=== PATIENT | female | born 1935 | race Caucasian/White ===

== ENCOUNTER 2019-08-18 11:30 | Inpatient (IN) | payer MEDICARE, SELFPAY ==
[2019-08-23 03:20] VITALS: BP 156/70; PULSE 74; RESP 18; TEMP 36.6; O2SAT 96
[2019-08-23 05:00] VITALS: PULSE 81; RESP 18; O2SAT 98
[2019-08-23 07:00] VITALS: BP 164/56; PULSE 82; RESP 18; TEMP 36.4; O2SAT 92
[2019-08-23 07:16] LABS: Anion Gap 13.9 (5-19); Blood Urea Nitrogen 25 mg/dL (8-23); Calcium 8.5 mg/Dl (8.8-10.2); Carbon Dioxide 20 mmol/L (22-29); Chloride 106 mmol/L (98-107); Glucose 256 mg/dL (74-106); Potassium 3.9 mmol/L (3.5-5.1); Sodium 136 mmol/L (136-145)
[2019-08-23 08:00] VITALS: BP 164/56; PULSE 82; RESP 18; TEMP 36.4; O2SAT 92
[2019-08-23] MEDS: amoxicillin-clav 875-125 mg Tablet 1 TAB PO (08:16)
[2019-08-23] MEDS: apixaban 5 mg Tablet PO (08:16)
[2019-08-23] MEDS: metoprolol tartrate 25 mg Tablet 12.5 MG PO (08:18)
[2019-08-23] MEDS: vancomycin 750 MG in sodium chloride 0.9% 250 ML 250 MG IV (08:26)
--- NOTE | 2019-08-23 10:32 | P.DS_ITS ---
Discharge Providers Date of Admission: 08/18/19 11:30 Date of Discharge: 08/23/19 Attending Provider at Admission: Vince Encinas Attending Provider at Discharge: Vince Encinas Primary Care Provider: Rosmery Mijares Diagnoses at Discharge Discharge Diagnosis (1) Meningoencephalitis: Status: Acute (2) Sepsis: Status: Resolved (3) Fall: Status: Acute (4) Pneumonia: Status: Acute (5) Cerebellar artery occlusion or stenosis: Status: Acute (6) A-fib: Status: Acute (7) Thyroid goiter: Status: Acute (8) Cholelithiasis: Status: Acute (9) Tricuspid valve disorder: Status: Acute (10) DM type 2 (diabetes mellitus, type 2): Status: Acute (11) Hip pain: Status: Acute (12) HTN (hypertension): Status: Acute (13) (HFpEF) heart failure with preserved ejection fraction: Status: Acute Reason for Visit Reason for Visit: Reason For Visit: Ams/Fall Hospital Course Hospital Course: 83-year-old lady with history of hypertension, diabetes, possible blindness was admitted after presenting to the hospital after a fall with right hip pain, while in the hospital started on treatment for community- acquired pneumonia with suspected sepsis, noted to have confusion, with encephalopathy with 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 HSV serologies were sent out. No finding suggestive of HSV encephalitis noted on MRI brain. On MRA of blood vessels noted to have severe stenosis of right posterior cerebral artery, severe focal stenosis at origin of left posterior cerebral artery. Her mental status was noted to improved. While in the hospital also noted to have new onset atrial fibrillation with RVR. Due to this was started on anticoagulation with Eliquis. Also newly diagnosed with diabetes, A1c 12.72 which was started on Lantus. Due to hypertension was started on amlodipine. She has not seen a physician in a while, and was unaware of underlying problems. 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 No stridor noted on exam. Also incidentally found right adrenal adenoma, as well as cholelithiasis, which was confirmed on gallbladder ultrasound, with GB wall thickening, however, otherwise no signs of cholecystitis. She has remained asymptomatic without right upper quadrant pain or discomfort. Discussed all the incidental findings with her and her family. 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 fib, with risk of fall for now we will hold off on aspirin. Due to this also follow-up with neurology in outpatient clinic. She will be referred for follow-up with ENT regarding substernal thyroid goiter. Low-fat diet was recommended with regards to cholelithiasis, please consider referral to surgery as needed. She is referred for adrenal CT for follow-up on the adenoma. Incidentally noted tricuspid valve thickening with possible calcification on echocardiogram. She has had no signs of embolic disease during this hospitalization. There is been no sign of bacteremia, and bacterial cultures were been negative. She is referred for outpatient follow-up with cardiology. There has been no growth on CSF cultures. IV antibiotics have been discontinued. She has been switched over to Augmentin and will complete a 5-day course. Her HSV serology came back negative, mental status has been consistently good, and so acyclovir is discontinued. She experienced a fall during hospitalization, which was not witnessed, however, she reports was due to loss of balance. Due to balance issues, risk of falls home health is ordered for her, as well as walker. She is instructed to use her walker at all times. Physical Exam Const: COMMON NORMALS: no apparent distress HENMT: COMMON NORMALS: oropharynx normal Neck/C-Spine: COMMON NORMALS: no JVD Resp: COMMON NORMALS: normal respiratory effort and clear to auscultation bilaterally AUSCULTATION: clear to auscultation bilaterally Cardio: COMMON NORMALS: no JVD, regular rhythm, S1 normal heart sound, S2 normal heart sound and no murmurs RHYTHM: regular rhythm HEART SOUNDS: S1 normal and S2 normal GI: COMMON NORMALS: normal to inspection, nondistended, normoactive bowel sounds, soft to palpation and non-tender PALPATION: Yes soft Extremity: COMMON NORMALS: no joint enlargement and no pedal edema Skin: COMMON NORMALS: no rashes or lesions noted GENERAL SKIN EXAM: no rashes or lesions noted Discharge Data Data Completed and Pending: Labs from last 24 hours 08/23/19 08/22/19 08/22/19 06:57 21:45 17:00 WBC RBC Hgb Hct MCV MCH MCHC RDW Plt Count MPV Neut % (Auto) Lymph % (Auto) [place] % (Auto) Eos % (Auto) Baso % (Auto) Neut # (Auto) Lymph # (Auto) [place] # (Auto) Eos # (Auto) Baso # (Auto) Nucleated RBC % (a uto) Nucleated RBCs # Sodium 136 Potassium 3.9 Chloride 106 Carbon Dioxide 20 L Anion Gap 13.9 BUN 25 H Creatinine 0.9 Glucose 256 H POC Glucose 300 H 249 H Random Glucose Calcium 8.5 L Total Bilirubin AST ALT Alkaline Phosphata se Total Protein Albumin Globulin Vancomycin Trough 08/22/19 08/22/19 08/22/19 16:29 11:12 05:54 WBC RBC Hgb Hct MCV MCH MCHC RDW Plt Count MPV Neut % (Auto) Lymph % (Auto) [place] % (Auto) Eos % (Auto) Baso % (Auto) Neut # (Auto) Lymph # (Auto) [place] # (Auto) Eos # (Auto) Baso # (Auto) Nucleated RBC % (a uto) Nucleated RBCs # Sodium 137 Potassium 3.3 L Chloride 105 Carbon Dioxide 22 Anion Gap 13.3 BUN 23 Creatinine 0.8 Glucose POC Glucose 217 H Random Glucose 182 H Calcium 8.4 L Total Bilirubin 0.5 AST 17 ALT 16 Alkaline Phosphata se 49 Total Protein 5.1 L Albumin 2.6 L Globulin 2.5 Vancomycin Trough 18.4 H 08/22/19 05:54 WBC 7.2 RBC 3.92 L Hgb 10.8 L Hct 35.2 L MCV 89.8 MCH 27.6 L MCHC 30.7 RDW 13.5 Plt Count 236 MPV 9.1 Neut % (Auto) 60.1 Lymph % (Auto) 23.5 [place] % (Auto) 11.0 Eos % (Auto) 4.1 Baso % (Auto) 1.0 Neut # (Auto) 4.3 Lymph # (Auto) 1.7 [place] # (Auto) 0.8 Eos # (Auto) 0.3 Baso # (Auto) 0.1 Nucleated RBC % (a uto) 0 Nucleated RBCs # 0.0 Sodium Potassium Chloride Carbon Dioxide Anion Gap BUN Creatinine Glucose POC Glucose Random Glucose Calcium Total Bilirubin AST ALT Alkaline Phosphata se Total Protein Albumin Globulin Vancomycin Trough Vitals: Last Vital Signs Temp 97.5 F L 08/23/19 08:00 Pulse 82 08/23/19 08:00 Resp 18 08/23/19 08:00 BP 164/56 08/23/19 08:00 Pulse Ox 92 08/23/19 08:00 Discharge Plan Discharge Patient Disposition: Home Health Service Condition: Stable Prescriptions: New amoxicillin-pot clavulanate 875-125 mg Tablet 1 tab PO BID Qty: 10 RF: 0 Eliquis 5 mg Tablet 5 mg PO BID Qty: 60 RF: 0 metoprolol tartrate 25 mg Tablet 12.5 mg PO BID Qty: 30 RF: 0 nystatin [Nyamyc] 100,000 unit/gram Powder 1 applic topical BID Qty: 25 RF: 0 amlodipine 10 mg Tablet 10 mg PO DAILY Qty: 30 RF: 0 atorvastatin 40 mg Tablet 40 mg PO BEDTIME Qty: 30 RF: 0 furosemide 20 mg Tablet 20 mg PO BREAKFAST Qty: 30 RF: 0 No Action No Known Home Medications RF: 0 Discharge Orders: Discharge Order (Routine); Ordered 08/23/19 Ordered By: Vince Encinas Other Ambulatory Orders: CT abdomen pelvis w con* [id number] (Routine) Timeframe: 2 Weeks Facility: [facility] - Location: [facility] Ordered By: Vince Encinas Referrals: ENT, ENT [Other] - 2 weeks (PLEASE CALL DR. JANNA NOLAN'S OFFICE TOMORROW TO SET UP AN APPOINTMENT TO BE SEEN REGARDING THYROID GOITER.) Neurology, Neurology [Other] - 1 month (PLEASE CALL [facility] TOMORROW TO SET UP A FOLLOW UP APPOINTMENT.) Any, cardiology [Other] - 1 month ( PLEASE CALL [facility] TOMORROW TO SET UP AN APPINTMENT REGARDING THICKENING OF YOUR TRICUSPID VALVE.) Rosmery Mijares FNP [Primary Care Provider] - 4-7 days (PLEASE CALL ROSMERY MIJARES'S OFFICE TOMORROW TO SET UP A FOLLOW UP APPOINTMENT.) Discharge Diet: Low-fat, diabetic, less than 2 g sodium per day Discharge Activity: Use walker/crutches as instructed Activity Restrictions/Additional Instructions: Primary care provider refer to surgery for follow-up as needed for cholelithiasis. Please use walker at all times while on your feet. Please maintain strict fall precautions at home. Remove any loose articles from the floor, including mats, cables, etc. Please monitor your blood pressure 3 times daily, record values to bring to your appointment. Discharge Attestations Time Spent in Discharge Care*: greater than 30 min Quality Metrics Clinical Quality Measures During this hospital stay, did patient experience: None Coding Level of Care Code Acute Gluing Machine Offbearer for g Fwd Diagnoses Meningoencephalitis G04.90 Sepsis A41.9 Fall W19.XXXA Pneumonia J18.9 Cerebellar artery occlusion or stenosis I66.3 A-fib I48.91 Thyroid goiter E04.9 Cholelithiasis K80.20 Tricuspid valve disorder I07.9 DM type 2 (diabetes mellitus, type 2) E11.9 Hip pain M25.559 HTN (hypertension) I10 (HFpEF) heart failure with preserved ejection fraction I50.30
--- NOTE | 2019-08-23 10:33 | PC.SOCIAL ---
Pg 2 of IMM Pg 2 of IMM was explained and signed by the patient, copy was provided, and form placed in chart. She verbalized understanding and had no questions.
[2019-08-23 11:18] VITALS: BP 145/65; PULSE 76; RESP 18; TEMP 36.4; O2SAT 99
[2019-08-23 12:27] VITALS: PULSE 81; RESP 18; TEMP 36.4; O2SAT 99
--- NOTE | 2019-08-23 16:16 | PC.NURSE ---
MEDICATIONS SENT HOME PATIENT'S MEDICATIONS WERE TRANSCRIBED TO [facility] IN [place]. COST WAS AROUND $1000. PATIENT UNABLE TO AFFORD. MEDICATIONS SENT TO FLOOR FROM PHARMACY [facility]. A ONE TIME DOSE OF METOPROLOL, ELIQUIS, AMOXICILLIN, ATORVASTATIN WAS GIVEN TO PATIENT FAMILY MEMBER UNTIL MEDICATIONS CAN BE TRANSFERRED TO [facility] IN THE MORNING. ELIQUIS DISCOUNT ALSO GIVEN WELL FINANCIAL ASSISTANCE APPLICATION. FAMILY MEMBER UNDERSTOOD. ALL QUESTIONS ANSWERED.
== END 2019-08-23 14:00 | disposition home health service (06) | DRG 871 ==
PROVIDERS: Admitting Provider Internal Medicine; Emergency Provider Emergency Medicine; PCP Nurse Practitioner; Referring Provider Nurse Practitioner; Visit Provider Internal Medicine
DX: A41.9 Sepsis, unspecified organism (principal); G04.90 Encephalitis and encephalomyelitis, unspecified; J18.9 Pneumonia, unspecified organism; I50.30 Unspecified diastolic (congestive) heart failure; K80.20 Calculus of gallbladder without cholecystitis without obstruction; E11.65 Type 2 diabetes mellitus with hyperglycemia; Z79.4 Long term (current) use of insulin; I48.91 Unspecified atrial fibrillation; I66.3 Occlusion and stenosis of cerebellar arteries; I11.0 Hypertensive heart disease with heart failure; Z91.81 History of falling; M25.551 Pain in right hip; E04.9 Nontoxic goiter, unspecified; I07.9 Rheumatic tricuspid valve disease, unspecified
CPT/HCPCS: 36415; 36416; 36600; 51702; 70450; 70544; 70547; 70551; 71045; 71250; 72170; 73502; 73700; 76705; 80048; 80053; 80061; 80202; 80500; 81001; 82009; 82042; 82550; 82803; 82945; 82962; 83036; 83605; 83615; 83735; 83880; 83986; 84145; 84157; 84439; 84443; 84481; 84484; 85025; 85610; 86140; 86403; 87040; 87070; 87075; 87086; 87205; 87449; 87493; 87530; 87804; 89050; 92523; 92526; 92610; 93005; 93306; 96361; 96365; 96372; 97110; 97116; 97161; 97166; 97530; 97535; 99285; C1751; G0378; J0133; J0290; J0360; J0456; J0696; J1630; J1815; J1940; J2001; J2060; J2543; J3370; J3475; J3480; J3490; J7050

== ENCOUNTER 2019-09-19 15:15 | Outpatient (CLI) | payer MEDICARE, SELFPAY ==
--- NOTE | 2019-09-19 15:46 | XR_ITS ---
WS: [id number] LUMBAR SPINE: 3 VIEWS TECHNIQUE: AP, lateral and L5-S1 spot. HISTORY: INJURY OF LOW BACK COMPARISON: None available. Bones are markedly osteopenic. Increase in lumbar lordosis. Moderate disc space narrowing throughout the lumbar spine. No fractures are appreciated. Partial sacralization of L5 on the LEFT. Marked narrowing of the SI joints. Severe narrowing of the LEFT hip joint. Large calcified mass in th e RIGHT pelvis measures 5.2 x 4.5 cm consistent with a fibroid. Scattered plaque within the aorta. XR/XR lumbar spine 2-3V* [id number] IMPRESSION: 1. Severe osteopenia and increased lordosis. 2. No acute fractures are identified. Subtle fractures would easily be obscure d with this amount of osteopenia. 3. Calcified fibroid.
== END 2019-09-19 15:16 | disposition home or self-care (01) ==
LOC: RAD 15:20
PROVIDERS: Visit Provider Family Medicine
DX: S39.92XA Unspecified injury of lower back, initial encounter (principal); X58.XXXA Exposure to other specified factors, initial encounter; M85.88 Other specified disorders of bone density and structure, other site; D36.7 Benign neoplasm of other specified sites
CPT/HCPCS: 72100

== ENCOUNTER 2020-05-03 17:00 | Inpatient (IN) | payer MEDICARE, SELFPAY ==
[2020-05-03 17:15] VITALS: BP 173/77; PULSE 93; RESP 18; TEMP 36.5; O2SAT 90; BMI 35.1
--- NOTE | 2020-05-03 17:58 | XRR_ITS ---
PROCEDURE INFORMATION: Exam: XR Chest, 1 View Exam date and time: 05/03/2020 6:10 PM Age: 84 years old Clinical indication: Dyspnea TECHNIQUE: Imaging protocol: XR of the chest Views: 1 view. COMPARISON: CR Chest 1 [place] [id number] 08/19/2019 4:54 AM FINDINGS: Lungs: Ground-glass opacity in the right lung base. Pleural space: Shallow inspiration with crowding. Elevation of the right diaphragm versus increased right subpulmonic effusion. Stable small left pleural effusion with left base atelectasis. Heart/Mediastinum: Unremarkable. No cardiomegaly. Bones/joints: Unremarkable. XR/XR chest 1V portable [id number] IMPRESSION: 1. Increased right base consolidation and probable sub pulmonic effusion. 2. Stable small left pleural effusion.
--- NOTE | 2020-05-03 17:58 | ECG_ITS ---
[facility] Date: 2020-05-03 Pat Name: Kim Mon Department: Room: Gender: Female Environmental Services Floor Tech: : 1935 Requested By: Teddy Flores Order Number: [id number] Teresa MD: Jeremy Vargas M.D. Measurements Intervals [place] Rate: 94 P: 174 [place]: 229 QRS: 11 QRSD: 82 T: 5 QT: 366 QTc: 458 Interpretive Statements SINUS RHYTHM WITH FIRST DEGREE AV BLOCK POSSIBLE ANTERIOR MYOCARDIAL INFARCTION , PROBABLY OLD [30 ms Q WAVE IN V3/V4, OR R < 0.2 mV IN V4] Compared to ECG 08/19/2019 22:41:56 First degree AV block now present Myocardial infarct finding now present Atrial fibrillation no longer present T-wave abnormality no longer present Electronically Signed On 05-04-2020 16:20:32 CDT by Jeremy Vargas M.D. [email or web address]
--- NOTE | 2020-05-03 18:00 | USR_ITS ---
PROCEDURE INFORMATION: Exam: US Duplex Lower Extremity Veins, Bilateral Exam date and time: 05/03/2020 6:32 PM Age: 84 years old Clinical indication: Edema, localized; Lower extremity, bilateral; Additional info: Leg swelling/pain TECHNIQUE: Imaging protocol: Real-time duplex ultrasound of the extremities with 2-D humprhey scale, color Doppler flow and spectral waveform analysis with image documentation. Complete exam focused on the bilateral lower extremity veins. COMPARISON: No relevant prior studies available. FINDINGS: Right deep veins: Unremarkable. The common femoral, femoral, proximal profunda femoral and popliteal veins are patent without thrombus. Normal Doppler waveforms. Normal compressibility and/or augmentation response. Right superficial veins: Saphenofemoral junction is patent without thrombus. Left deep veins: Unremarkable. The common femoral, femoral, proximal profunda femoral and popliteal veins are patent without thrombus. Normal Doppler waveforms. Normal compressibility and/or augmentation response. Left superficial veins: Saphenofemoral junction is patent without thrombus. Soft tissues: Bilateral lower extremity subcutaneous soft tissue edema. US/CV venous duplex [facility] [id number] IMPRESSION: 1. No evidence for deep vein thrombosis.
[2020-05-03 18:30] LABS: NT Pro B Type Natriuretic Pept 5491 pg/mL (0-450); Procalcitonin 0.14 ng/mL (0-0.5)
[2020-05-03 18:42] LABS: Alanine Aminotransferase 15 U/L (0-33); Albumin Level 3.9 g/dL (3.5-5.2); Alkaline Phosphatase 112 IU/L (35-105); Anion Gap 18.4 (5-19); Aspartate Amino Transferase 17 U/L (0-32); Blood Urea Nitrogen 37 mg/dL (8-23); C Reactive Protein 16.3 mg/L (0.0-4.9); Carbon Dioxide 21 mmol/L (22-29); Chloride 103 mmol/L (98-107); Creatine Phosphokinase 66 U/L (26-192); Ferritin 63 ng/mL (15-150); Globulin 3.4 g/dL (1.3-4.6); Glucose 167 mg/dL (65-115); Lactate Dehydrogenase 263 U/L (135-214); Magnesium 2.4 mg/dL (1.7-2.3); Osmolality Calculated 287 mOsm/kg (285-295); Potassium 4.4 mmol/L (3.5-5.1); Sodium 138 mmol/L (136-145); Total Bilirubin 0.5 mg/dL (0.15-1.2); Total Protein 7.3 g/dL (6.6-8.7)
[2020-05-03 19:01] LABS: INR 1.08 (0.8-1.2)
[2020-05-03 19:02] LABS: Partial Thromboplastin Time 32.3 SECONDS (23.9-36.7)
[2020-05-03 19:03] LABS: Fibrinogen 476 mg/dL (174-498)
[2020-05-03 19:05] LABS: D Dimer 2.73 ug/mIFEU (0-0.59)
--- NOTE | 2020-05-03 19:27 | ED_ITS ---
HPI - SOB/Dyspnea General: Chief Complaint: Shortness of Breath/Dyspnea Stated Complaint: sob Time Seen by Provider: 05/03/20 17:58 Source: patient Mode of arrival: ambulatory Limitations: no limitations History of Present Illness: HPI Narrative: Kim is a very nice 84-year-old female who comes in complaining of shortness of breath. She is been short of breath for approximately 3 weeks to a month. During that time she is had bilateral increased leg swelling that now extends all the way up to her thighs. She says she gets very short of breath when she exerts herself and also when she lays flat. She denies any chest pain. She is had associated nausea with this but denies any vomiting, fever, chills or cough. Patient has not been exposed to anyone with the COVID-19 virus as she is stayed home and isolated herself. She states as long as she is at rest she is okay but if she exerts herself at all she becomes very short of breath. Patient denies a history of COPD or congestive heart failure. It was not documented but the patient did arrive and is requiring at least 3 L of nasal cannula oxygen to keep her pulse ox above 90%. Associated symptoms: Reports orthopnea; Deny abdominal pain, chest congestion, chest pain, diaphoresis, dizziness, extremity pain, fever(s), hemoptysis, lightheadedness, nausea, palpitations, syncope or vomiting Review of Systems Const: Denies: fever(s), chills, body aches, fatigue, malaise or diaphoresis Eyes: Denies: change in vision, blurry vision, photophobia, eye discomfort, eye discharge, eye redness or yellow eyes ENMT: Denies: throat pain, odynophagia, hoarseness, swelling of lips/tongue, ear or mastoid pain, ear discharge, change in hearing or nasal discharge Card: Reports: edema, dyspnea on exertion and orthopnea; Denies: chest pain, palpitations, irregular heart rhythm, lightheadedness, syncope or pre-syncope Resp: Reports: dyspnea; Denies: productive cough, non-productive cough, wheezing, hemoptysis or chest congestion GI: Denies: abdominal pain, nausea, vomiting, hematemesis, coffee ground emesi s, heartburn, diarrhea, constipation, GI cramping, hematochezia or melena : Denies: flank pain, dysuria, urinary frequency, urinary urgency or hematuria Musc: Denies: neck pain, back pain, extremity pain, extremity swelling, joint pain, joint swelling, joint redness, joint warmth or joint stiffness Skin/Breast: Denies: rash, pruritus, erythema, skin pain or skin tenderness Neuro: Denies: headache(s), numbness in extremities, weakness in extremities, sensory changes, lack of coordination, difficulty walking, dizziness, vertigo, confusion, Slurred speech present or seizure-like activity Sanchez/Lymph: Denies: easy bruising, easy bleeding, petechiae, purpura or enlarged lymph nodes All/Imm: Denies: urticaria, throat swelling, tongue swelling, facial swelling or acute wheezing PFSH ED PFSH: Medical History (HFpEF) heart failure with preserved ejection fraction A-fib Cerebellar artery occlusion or stenosis Cholelithiasis DM type 2 (diabetes mellitus, type 2) Hip pain HTN (hypertension) Thyroid goiter Tricuspid valve disorder Social History Smoking and tobacco status: never smoked Second hand smoke exposure: Yes Alcohol intake: never Substance/Drug Use: never Physical Exam Const: COMMON NORMALS: no acute distress, patient oriented x3, no limitations and alert GENERAL APPEARANCE: cooperative HENMT: COMMON NORMALS: normocephalic, atraumatic, external ears normal, EAC's normal and Normal external nose present HEAD & SCALP: normal to inspection, normocephalic and atraumatic FACE & SINUS: normal facial exam and face symmetric NOSE: Normal external nose present and Normal nares present EXTERNAL EAR: Yes external ears normal EXTERNAL AUDITORY CANAL: EAC's normal MOUTH: Normal oral and palatal mucosa present, lip normal and tongue normal Eye: COMMON NORMALS: Equal, round and reactive pupils present and conjunctivae normal GENERAL EYE: appearance normal, both eyes and all related structures ALIGNMENT: Yes alignment normal PERIORBITAL: periorbital findings normal EYELID: eyelids normal CONJUNCTIVA: Yes conjunctivae normal SCLERA: sclerae normal PUPIL: Yes Equal, round and reactive pupils present Neck/C-Spine: COMMON NORMALS: full ROM, no lymphadenopathy, supple, no meningeal signs and no JVD GENERAL: Yes normal visual inspection and Yes trachea midline Chest: COMMONS NORMALS: normal inspection of the chest and normal palpation of entire chest wall Resp: COMMON NORMALS: normal respiratory effort, No retractions, No use of accessory muscles and clear to auscultation bilaterally EFFORT & INSPECTION: Yes able to speak in complete sentences and Yes symmetric chest movement AUSCULTATION: clear to auscultation bilaterally, no crackles, rales, no rhonchi and no wheezes Cardio: COMMON NORMALS: no JVD, regular rate, regular rhythm, S1 normal heart sound present and S2 normal heart sound present RATE: regular rate RHYTHM: regular rhythm HEART SOUNDS: S1 normal heart sound present, S2 normal heart sound present, no click, no gallops, no murmurs and no rubs GI: COMMON NORMALS: Soft to palpation and No hepatosplenomegaly present PALPATION: Yes Soft to palpation, No Tenderness to palpation present (GI), No Guarding due to palpation present (GI), No Rigid due to palpation, Yes No hepatosplenomegaly present, No Hernia present, No Palpable mass present and No Pulsatile mass present : COMMON NORMALS: Yes no CVA tenderness BLADDER/KIDNEY EXAM: Yes no CVA tenderness EXTERNAL FEMALE EXAM: No Hernia present Back/Pelvis: COMMON NORMALS: no CVA tenderness, thoracic and lumbar spine normal to inspection, no thoracic nor lumbar tenderness and thoraco-lumbar ROM normal Extremity: COMMON NORMALS: normal to inspection, full ROM, capillary refill normal, no joint enlargement and no calf tenderness NARRATIVE EXTREMITY EXAM: Bilateral lower extremity edema to the proximal thighs Neuro: COMMON NORMALS: patient oriented x3, CN's II-XII intact bilaterally, moves all extremities, no focal motor deficits and no sensory deficits noted SENSORIUM/ORIENTATION: Yes alert MENINGEAL SIGNS: Yes no meningeal signs SPEECH: speech normal Psych: COMMON NORMALS: mental status grossly normal, Normal thought process present, cooperative, normal affect, speech normal and activity/motor behavior normal SPEECH: Yes normal speech THOUGHT PROCESS: Normal thought process present Skin: COMMON NORMALS: no rashes or lesions noted, turgor normal, no jaundice, no petechiae and no mottling GENERAL SKIN EXAM: no rashes or lesions noted and turgor normal Course Vital Signs: Vital signs: Vital Signs Temperature 97.7 F 05/03/20 17:15 Pulse Rate 92 05/03/20 23:03 Respiratory Rate 19 H 05/03/20 23:03 Blood Pressure 159/104 05/03/20 23:03 Pulse Oximetry 92 05/03/20 23:03 MDM - SOB/Dyspnea MDM Narrative: Medical decision making narrative: Moriah is a nice 84-year-old female comes in with dyspnea on exertion, orthopnea and progressive leg swelling. Ultrasound of her legs are unremarkable for DVT. Patient appears to be in a heart failure exacerbation. The case was endorsed to Dr. Pascualui she agrees admit for diuresis on stepdown. She would like to go ahead and do a CTA as the patient's d-dimer is positive despite being on Eliquis. Will rule out PE but also look at these effusions better to see if there is any loculation or underlying pathology. Lab Data: Attestation: I reviewed the patient's lab results. Labs: Lab Results 05/03/20 05/03/20 05/03/20 Range/Units 17:54 17:54 17:54 WBC 6.6 (4.0-10.0) 10^3/ uL RBC 3.92 L (4.1-5.3) 10^6/u L Hgb 10.5 L (11.5-15.3) g/dL Hct 32.6 L (37.0-47.0) % MCV 83.2 (81-99) fL MCH 26.8 L (28.0-34.0) pg MCHC 32.2 (30.0-36.0) g/dL RDW 15.9 H (12.1-15.1) % Plt Count 386 (130-400) 10^3/c mm MPV 9.2 (7.4-10.4) fL Neut % (Auto) 58.2 % Lymph % (Auto) 23.5 % Hamblen % (Auto) 11.9 % Eos % (Auto) 4.8 % Baso % (Auto) 1.4 % Neut # (Auto) 3.86 (1.8-7.7) 10^3/u L Lymph # (Auto) 1.6 (0.8-4.8) 10^3/u L Hamblen # (Auto) 0.8 (0.2-0.9) 10^3/u L Eos # (Auto) 0.3 (0.0-0.8) 10^3/u L Baso # (Auto) 0.1 (0.0-0.1) 10^3/u L Nucleated RBC % (a uto) 0 % Nucleated RBCs # 0.0 /100WBC PT 14.30 (12.1-14.9) SECO NDS INR 1.08 (0.8-1.2) APTT 32.3 (23.9-36.7) SECO NDS Fibrinogen 476 (174-498) mg/dL D-Dimer 2.73 H (0-0.59) ug/mIFE U Specimen Type Sample Site ABG pH (7.35-7.45) ABG pCO2 (35-45) mmHg ABG pO2 (80.0-100.0) mmH g ABG HCO3 (22-26) mmol/L ABG Base Excess (-2.0-2.0) mmol/ L Michael Test Hematocrit (37-47) % O2 Delivery Device O2 Liters/Min % FiO2 % Assistant Director Of Plant Operations ID Sodium 138 (136-145) mmol/L Potassium 4.4 (3.5-5.1) mmol/L Chloride 103 (98-107) mmol/L Carbon Dioxide 21 L (22-29) mmol/L Anion Gap 18.4 (5-19) BUN 37 H (8-23) mg/dL Creatinine 0.8 (0.5-0.9) mg/dL GFR Calculation Not Reportable Glucose 167 H (65-115) mg/dL Calculated Osmolal ity 287 (285-295) mOsm/k g Lactic Acid (0.5-2.2) mmol/L Calcium 9.0 (8.5-10.5) mg/dL Magnesium 2.4 H (1.7-2.3) mg/dL Ferritin 63 (15-150) ng/mL Total Bilirubin 0.5 (0.15-1.2) mg/dL AST 17 (0-32) U/L ALT 15 (0-33) U/L Alkaline Phosphata se 112 H (35-105) IU/L Lactate Dehydrogen ase 263 H (135-214) U/L Creatine Kinase 66 (26-192) U/L C-Reactive Protein 16.3 H (0.0-4.9) mg/L NT-Pro-B Natriuret Pep 5491 H (0-450) pg/mL Total Protein 7.3 (6.6-8.7) g/dL Albumin 3.9 (3.5-5.2) g/dL Globulin 3.4 (1.3-4.6) g/dL Procalcitonin 0.14 (0-0.5) ng/mL SARS-CoV-2 Ag (Rap id) (Negative) 05/03/20 05/03/20 05/03/20 Range/Units 19:34 20:21 21:40 WBC (4.0-10.0) 10^3/ uL RBC (4.1-5.3) 10^6/u L Hgb (11.5-15.3) g/dL Hct (37.0-47.0) % MCV (81-99) fL MCH (28.0-34.0) pg MCHC (30.0-36.0) g/dL RDW (12.1-15.1) % Plt Count (130-400) 10^3/c mm MPV (7.4-10.4) fL Neut % (Auto) % Lymph % (Auto) % Hamblen % (Auto) % Eos % (Auto) % Baso % (Auto) % Neut # (Auto) (1.8-7.7) 10^3/u L Lymph # (Auto) (0.8-4.8) 10^3/u L Hamblen # (Auto) (0.2-0.9) 10^3/u L Eos # (Auto) (0.0-0.8) 10^3/u L Baso # (Auto) (0.0-0.1) 10^3/u L Nucleated RBC % (a uto) % Nucleated RBCs # /100WBC PT (12.1-14.9) SECO NDS INR (0.8-1.2) APTT (23.9-36.7) SECO NDS Fibrinogen (174-498) mg/dL D-Dimer (0-0.59) ug/mIFE U Specimen Type Arterial Sample Site Brachial, left ABG pH 7.41 (7.35-7.45) ABG pCO2 34.2 L (35-45) mmHg ABG pO2 66.0 L (80.0-100.0) mmH g ABG HCO3 21.5 L (22-26) mmol/L ABG Base Excess -2.7 L (-2.0-2.0) mmol/ L Michael Test Pos Hematocrit 31.7 L (37-47) % O2 Delivery Device Nc O2 Liters/Min 4.0 % FiO2 36.0 % Assistant Director Of Plant Operations ID [id number] Sodium (136-145) mmol/L Potassium (3.5-5.1) mmol/L Chloride (98-107) mmol/L Carbon Dioxide (22-29) mmol/L Anion Gap (5-19) BUN (8-23) mg/dL Creatinine (0.5-0.9) mg/dL GFR Calculation Glucose (65-115) mg/dL Calculated Osmolal ity (285-295) mOsm/k g Lactic Acid 0.9 (0.5-2.2) mmol/L Calcium (8.5-10.5) mg/dL Magnesium (1.7-2.3) mg/dL Ferritin (15-150) ng/mL Total Bilirubin (0.15-1.2) mg/dL AST (0-32) U/L ALT (0-33) U/L Alkaline Phosphata se (35-105) IU/L Lactate Dehydrogen ase (135-214) U/L Creatine Kinase (26-192) U/L C-Reactive Protein (0.0-4.9) mg/L NT-Pro-B Natriuret Pep (0-450) pg/mL Total Protein (6.6-8.7) g/dL Albumin (3.5-5.2) g/dL Globulin (1.3-4.6) g/dL Procalcitonin (0-0.5) ng/mL SARS-CoV-2 Ag (Rap id) Negative (Negative) Imaging Data^: CXR: Attestation: I personally reviewed and interpreted this imaging study as follows: My impression: Congestive heart failure with bilateral pleural effusions Doppler bilateral lower extremities: My impression: Tech interpretation -no evidence of DVT EKG Data^: EKG 1: Attestation: I personally reviewed and interpreted this EKG as follows: EKG Interpretation Date: 05/03/20 EKG interpretation time: 18:27 Interpretation: Normal sinus rhythm with first-degree AV block, ventricular rate 94 beats a minute, normal QRS and QTc intervals, normal axis, nonspecific ST and T wave changes. Discharge Plan Discharge Patient Disposition: Admitted As Inpatient Clinical Impression: Acute exacerbation of congestive heart failure Condition: Stable Prescriptions: No Action atorvastatin 40 mg Tablet 40 mg PO BEDTIME Qty: 30 RF: 0 amlodipine 10 mg Tablet 10 mg PO DAILY Qty: 30 RF: 0 furosemide 20 mg Tablet 20 mg PO BREAKFAST Qty: 30 RF: 0 Nyamyc 100,000 unit/gram Powder 1 applic topical BID Qty: 25 RF: 0 amoxicillin-pot clavulanate 875-125 mg Tablet 1 tab PO BID Qty: 10 RF: 0 metoprolol tartrate 25 mg Tablet 12.5 mg PO BID Qty: 30 RF: 0 Eliquis 5 mg Tablet 5 mg PO BID Qty: 60 RF: 0 Lantus Solostar U-100 Insulin 100 unit/mL (3 mL) insulin pen 5 unit SUBCUT DAILY Qty: 3 RF: 0 Referrals: Mini Little DO [Primary Care Provider] - Coding Level of Care Code ED Cdl Service Technician for Chg Fwd Exam Comprehensive
[2020-05-03] MEDS: nitroglycerin 1 gm/inch oint Pkt 1 INCH TOPICAL (19:57)
[2020-05-03] MEDS: FUROsemide 10 mg/mL SDV 4mL 40 MG IVP (19:57)
[2020-05-03 20:02] LABS: Lactic Sepsis W/Reflex 0.9 mmol/L (0.5-2.2)
[2020-05-03 20:22] VITALS: BP 166/87; PULSE 95; RESP 25; O2SAT 92
[2020-05-03 20:22] LABS: Basophils # 0.1 10^3/uL (0.0-0.1); Basophils % 1.4 %; Eosinophils # 0.3 10^3/uL (0.0-0.8); Eosinophils % 4.8 %; Hematocrit 32.6 % (37.0-47.0); Hemoglobin 10.5 g/dL (11.5-15.3); Lymphocytes # 1.6 10^3/uL (0.8-4.8); Lymphocytes % 23.5 %; Mean Corpuscular HGB Conc 32.2 g/dL (30.0-36.0); Mean Corpuscular Hemoglobin 26.8 pg (28.0-34.0); Mean Corpuscular Volume 83.2 fL (81-99); Mean Platelet Volume 9.2 fL (7.4-10.4); Monocytes # 0.8 10^3/uL (0.2-0.9); Monocytes % 11.9 %; Neutrophils # 3.86 10^3/uL (1.8-7.7); Neutrophils % 58.2 %; Nucleated Red Blood Cells % 0 %; Platelet Count 386 10^3/cmm (130-400); Red Blood Count 3.92 10^6/uL (4.1-5.3); Red Cell Distribution Width 15.9 % (12.1-15.1); White Blood Count 6.6 10^3/uL (4.0-10.0)
[2020-05-03 20:59] VITALS: BP 163/95; PULSE 93; RESP 22; O2SAT 94
[2020-05-03 21:00] LABS: SARS Covid-2 Antigen Negative (Negative)
[2020-05-03 21:07] VITALS: BP 163/95; PULSE 93; RESP 25; O2SAT 92
[2020-05-03 21:48] LABS: ABG PCO2 34.2 mmHg (35-45); ABG PH Result 7.41 (7.35-7.45); Arterial Blood Gas Hematocrit 31.7 % (37-47); Base Excess ABG -2.7 mmol/L (-2.0-2.0); Blood Gas Allen Test Pos; Blood Gas Sample Site Brachial, left; Blood Gas Sample Type Arterial; HCO3 ABG 21.5 mmol/L (22-26); Oxygen Device NC
[2020-05-03 22:10] VITALS: BP 153/84; PULSE 94; RESP 21; O2SAT 92
[2020-05-03 23:03] VITALS: BP 159/104; PULSE 92; RESP 19; O2SAT 92
--- NOTE | 2020-05-03 23:32 | PM.HP ---
Providers/Chief Complaint Admitting Physician: Danielle Malave MD Primary Care Provider: Mini Little DO Chief Complaint: sob History of Present Illness Kim Mon is a 84 year old female with PMHx noted below presents from home due to ongoing and worsening shortness of breath, generalized swelling for the past 4 to 6 weeks. She has also had orthopnea, abdominal wall distention, and increasing shortness of breath even with minimal exertion. She is not oxygen dependent at baseline and has had progressive difficulty ambulating due to heaviness in her legs. She has a known history of chronic diastolic CHF and is on low-dose Lasix chronically. Last echo in July showed an ejection fraction of 62% with grade 2 diastolic dysfunction. Work-up today shows a normal white count of 6.6, hemoglobin of 10.5, normal electrolytes and creatinine, BUN of 37, blood glucose of 167, rapid COVID screen is negative, d-dimer is 2.73 and she is pending CTA, venous duplex has been done and is negative for DVT. Chest x-ray shows a right basilar consolidation, BNP is 5491, ABG shows some hypoxia and she is currently on supplemental oxygen. Julian catheter has been placed and she has received a 60 mg dose of IV Lasix with noted diuresis of approximately 1 L. She will require admission for further aggressive IV diuresis secondary to acutely decompensated diastolic CHF and treatment of pneumonia. Review of Systems Const: Reports: change in weight (weight gain) and fatigue; Denies: fever(s) or chills Eyes: Denies: change in vision ENMT: Reports: dry mouth Card: Reports: swelling of feet/ankles, dyspnea on exertion, orthopnea and other (orthopnea); Denies: chest pain or lightheadedness Resp: Reports: dyspnea GI: Reports: bloating; Denies: abdominal pain, nausea, vomiting, hematemesis or hematochezia : Denies: difficulty voiding, dysuria or hematuria Musc: Denies: back pain Skin/Breast: Denies: rash Neuro: Reports: weakness in extremities and difficulty walking; Denies: numbness in extremities Medications/Allergies Home Medications Medication Instructions Recorded Confirmed Last Taken Type amlodipine 10 mg PO DAILY #30 tab 08/23/19 05/04/20 05/03/20 08:00 Rx atorvastatin 40 mg PO BEDTIME #30 tab 08/23/19 05/04/20 05/02/20 21:00 Rx furosemide 20 mg PO BREAKFAST #30 tab 08/23/19 05/04/20 05/03/20 08:00 Rx metoprolol tartrate 12.5 mg PO BID #30 tab 08/23/19 05/04/20 05/03/20 20:00 Rx rivaroxaban [Xarelto] 20 mg PO DAILY 05/04/20 05/04/20 05/03/20 08:00 History Allergies Allergy/AdvReac Type Severity Reaction Status Date / Time shrimp Allergy Severe Unknown Verified 08/22/19 16:29 shellfish derived Allergy Unknown Unknown Verified 08/22/19 16:29 PFSH Acute PFSH: Medical History (Updated 05/04/20 @ 05:53 by Danielle Malave MD) (HFpEF) heart failure with preserved ejection fraction A-fib Cerebellar artery occlusion or stenosis Cholelithiasis DM type 2 (diabetes mellitus, type 2) Hip pain HTN (hypertension) Thyroid goiter Tricuspid valve disorder Surgical History (Updated 05/04/20 @ 05:43 by Danielle Malave MD) No pertinent past surgical history Family History (Updated 05/04/20 @ 05:44 by Danielle Malave MD) Mother Cancer Father CAD (coronary artery disease) Sister Diabetes Social History (Updated 05/04/20 @ 05:44 by Danielle Malave MD) Smoking and tobacco status: never smoked Second hand smoke exposure: Yes Alcohol intake: never Substance/Drug Use: never Household members: significant other Vitals/I&O/Wt Last Vital Signs Temp 97.7 F 05/03/20 17:15 Pulse 92 05/03/20 23:03 Resp 19 H 05/03/20 23:03 BP 159/104 05/03/20 23:03 Pulse Ox 92 05/03/20 23:03 Weight last 48 hrs Weight 78.925 kg Physical Exam Const: COMMON NORMALS: no acute distress and patient oriented x3 GENERAL APPEARANCE: cooperative, comfortable and Edematous NUTRITIONAL APPEARANCE: obese morbidly obese ORIENTATION/CONSCIOUSNESS: Yes awake OTHER: -Appears younger than stated age HENMT: COMMON NORMALS: normocephalic, atraumatic, hearing grossly normal bilaterally and moist oral mucous membranes HEAD & SCALP: normocephalic and atraumatic Eye: COMMON NORMALS: Equal, round and reactive pupils present, EOMs intact bilaterally and conjunctivae normal CONJUNCTIVA: Yes conjunctivae normal PUPIL: Yes Equal, round and reactive pupils present Neck/C-Spine: COMMON NORMALS: full ROM GENERAL: Yes normal visual inspection and Yes trachea midline Resp: COMMON NORMALS: normal respiratory effort, No retractions and No use of accessory muscles EFFORT & INSPECTION: Yes symmetric chest movement and Yes tachypneic AUSCULTATION: crackles OTHER: -Conversational dyspnea Cardio: COMMON NORMALS: regular rate, regular rhythm, S1 normal heart sound present and S2 normal heart sound present RATE: regular rate RHYTHM: regular rhythm HEART SOUNDS: S1 normal heart sound present, S2 normal heart sound present and Murmur heart sound present GI: COMMON NORMALS: Soft to palpation and non-tender INSPECTION: Yes Abdominal wall edema Laterality: bilateral, Yes Anasarca and Yes central obesity PALPATION: Yes Soft to palpation Extremity: COMMON NORMALS: normal to inspection and full ROM GENERAL: Yes edema (Up to upper thigh level bilaterally) Neuro: COMMON NORMALS: patient oriented x3, moves all extremities, no focal motor deficits and no sensory deficits noted SENSORIUM/ORIENTATION: Yes alert Psych: COMMON NORMALS: mental status grossly normal, Normal thought process present, cooperative, normal affect and speech normal SPEECH: Yes normal speech THOUGHT PROCESS: Normal thought process present Skin: COMMON NORMALS: no rashes or lesions noted, no jaundice, no petechiae and no mottling GENERAL SKIN EXAM: no rashes or lesions noted Urinary Catheter Management^: Julian: Cath Placed During This Visit: yes Reason for Continuing Indwelling Catheter: Accurate Measurement of Urinary Output in Critically Ill Patients Urinary Catheter Date of Insertion: 05/03/20 Urinary Catheter Time of Insertion: 20:24 Data : 05/03/20 17:54 05/03/20 17:54 Micro: Microbiology 05/03/20 19:34 Blood Culture - Preliminary Blood SPECIMEN COLLECTED 05/03/20 19:38 Blood Culture - Preliminary Blood SPECIMEN COLLECTED A&P Assessment and plan (1) Acute exacerbation of congestive heart failure: -Noted acute exacerbation of chronic diastolic CHF as evidenced by anasarca, BNP elevation, evidence of fluid overload on imaging -Has received a 60 mg dose of IV Lasix, continue IV diuresis -Telemetry monitoring, close monitoring of vital signs -Repeat echo ordered, last echo on record was in 07/2019 showing an ejection fraction of 62%, grade 2 diastolic dysfunction -Monitor renal function and electrolytes with diuresis -Monitor respiratory status, supplemental oxygen as needed Status: Acute Qualifiers: Heart failure type: diastolic Qualified Code(s): I50.33 - Acute on chronic diastolic (congestive) heart failure (2) Elevated d-dimer: -Noted to have d-dimer elevation, CTA ordered; venous duplex negative for DVT -Already on anticoagulation with Xarelto Status: Acute (3) Pneumonia: -Noted increased right basilar consolidation -Start on treatment with ceftriaxone and azithromycin -Monitor respiratory status, supplemental oxygen as needed Status: Acute Qualifiers: Pneumonia type: due to unspecified organism Laterality: right Lung location: lower lobe of lung Qualified Code(s): J18.9 - Pneumonia, unspecified organism (4) A-fib: -Telemetry monitoring -Resume metoprolol, Xarelto Status: Chronic Qualifiers: Atrial fibrillation type: unspecified Qualified Code(s): I48.91 - Unspecified atrial fibrillation (5) DM type 2 (diabetes mellitus, type 2): -Last A1c in 07/2019 was 12.6; repeat A1c -No noted insulin or hypoglycemic medications on med rec -Accu-Cheks, ISS, hypoglycemia precautions Status: Chronic Qualifiers: Diabetes mellitus terminal computer operator insulin use: without shelter use Diabetes mellitus complication status: without complication Qualified Code(s): E11.9 - Type 2 diabetes mellitus without complications (6) HTN (hypertension): -Monitor vital signs -Resume oral antihypertensives Status: Chronic Qualifiers: Hypertension type: essential hypertension Qualified Code(s): I10 - Essential (primary) hypertension (7) Fall: -Reports heavy sensation in her feet when she attempts to ambulate. This is likely secondary to acute CHF exacerbation -Fall precautions -PT evaluation Status: Acute Qualifiers: Encounter type: initial encounter Qualified Code(s): W19.XXXA - Unspecified fall, initial encounter Additional A&P Information -Morbid obesity: BMI-36 kg/m2 -cardiac consistent carb diet as tolerated -DVT ppx not needed as on AC -Dispo: home -Code status: FULL code Attestations Medical Necessity Statement*: Kim Mon's hospital stay will require greater than 2 midnights for management of acutely decompensated diastolic CHF requiring aggressive IV diuresis, treatment of pneumonia. Time Spent in Patient Care: Greater than 35 minutes (>than 50% of time spent in counselling and/or direct pt care on unit). Coding Level of Care Code Acute Steward/Stewardess Chief Cargo Vessel for Chg Fwd Diagnoses Acute exacerbation of congestive heart failure I50.33 Heart failure type: diastolic Elevated d-dimer R79.89 Pneumonia J18.9 Pneumonia type: due to unspecified organism Laterality: right Lung location: lower lobe of lung A-fib I48.91 Atrial fibrillation type: unspecified DM type 2 (diabetes mellitus, type 2) E11.9 Diabetes mellitus shelter insulin use: without shelter use Diabetes mellitus complication status: without complication HTN (hypertension) I10 Hypertension type: essential hypertension Fall W19.XXXA Encounter type: initial encounter
[2020-05-04] VITALS (9 sets, daily range): BP systolic 121–172; BP diastolic 70–88; PULSE 91–103; RESP 16–30; TEMP 35.9–36.9; O2SAT 94–98; BMI 36.1
[2020-05-04 00:40] LABS: Glucose Point of Care 164 mg/dL (70-110)
[2020-05-04] MEDS: azithromycin 500 MG in sodium chloride 0.9% 250 ML 250 MG IV (01:10)
[2020-05-04] MEDS: FUROsemide 10 mg/mL SDV 4mL 40 MG IVP ×3 (01:10→23:45)
[2020-05-04] MEDS: cefTRIAXone 1,000 MG in sodium chloride 0.9% (plus) 50 ML 100 MG IV ×2 (01:11→23:45)
--- NOTE | 2020-05-04 02:29 | PC.NURSE ---
Patient recieved from ED via gurney. Patient on O2 per NC on 4 L. Patient very winded upon exertion and even labored with wheezing noted after getting settled in bed. Lung sounds are greatly diminished. Bronchial congestion noted with weak ineffective cough at this time. Patient pleasant and alert and oriented X 4. Patient able to give history and answer questions appropriately. No skin issues noted. ABT given per patent 20 G peripheral IV to R antecubital space. No voiced pain at this time. VS WNL with BP noted to be a little on the high side. Will continue to monitor and assist as needed following CPOC
--- NOTE | 2020-05-04 02:45 | PC.NURSE ---
Patient unable to have CT done at this time. She becomes very short of breath to lie flat. Informed Dr Malave and CT will hold the order until patient is more stable.
[2020-05-04 06:13] LABS: Basophils # 0.1 10^3/uL (0.0-0.1); Basophils % 1.5 %; Eosinophils # 0.3 10^3/uL (0.0-0.8); Eosinophils % 4.6 %; Hemoglobin 9.5 g/dL (11.5-15.3); Lymphocytes # 1.2 10^3/uL (0.8-4.8); Lymphocytes % 19.8 %; Mean Corpuscular HGB Conc 31.7 g/dL (30.0-36.0); Mean Corpuscular Hemoglobin 26.2 pg (28.0-34.0); Mean Corpuscular Volume 82.6 fL (81-99); Mean Platelet Volume 8.7 fL (7.4-10.4); Monocytes # 0.7 10^3/uL (0.2-0.9); Monocytes % 12.3 %; Neutrophils # 3.61 10^3/uL (1.8-7.7); Neutrophils % 61.6 %; Nucleated Red Blood Cells % 0 %; Platelet Count 315 10^3/cmm (130-400); Red Blood Count 3.63 10^6/uL (4.1-5.3); Red Cell Distribution Width 15.6 % (12.1-15.1); White Blood Count 5.9 10^3/uL (4.0-10.0)
[2020-05-04 06:36] LABS: Glucose Point of Care 147 mg/dL (70-110)
[2020-05-04 06:45] LABS: Anion Gap 14.3 (5-19); Blood Urea Nitrogen 35 mg/dL (8-23); Calcium 8.6 mg/dL (8.5-10.5); Carbon Dioxide 24 mmol/L (22-29); Chloride 104 mmol/L (98-107); Glucose 151 mg/dL (65-115); Osmolality Calculated 286 mOsm/kg (285-295); Potassium 4.3 mmol/L (3.5-5.1); Sodium 138 mmol/L (136-145)
[2020-05-04 07:14] LABS: Estmated Average Glucose 154
[2020-05-04] MEDS: metoprolol tartrate 25 mg Tablet 12.5 MG PO ×2 (09:16→17:08)
[2020-05-04] MEDS: amlodipine 10 mg Tablet PO (09:16)
[2020-05-04] MEDS: rivaroxaban 10 mg Tablet 20 MG PO (09:16)
--- NOTE | 2020-05-04 09:48 | PC.ADMIT ---
[address] [facility] Admission Note: The patient,Kim Mon,84 y/o, was given written information regarding hospital policies, unit procedures and contact persons. Patient's smoking status: never smoked. Vital Signs - 8 hr 05/04/20 04:00 05/04/20 07:42 Temperature 98.4 F 97.6 F Pulse Rate 103 H 103 H Respiratory Rate 29 H 27 H Blood Pressure 149/88 144/86 Pulse Oximetry 96 97
[2020-05-04 10:17] LABS: Add Urine Microscopic? YES; Bilirubin Urine Neg (Negative); Blood Urine 3+ (Negative); Glucose Urine UA Trace (Normal); Ketones Urine Negative (Negative); Leukocyte Esterase Urine Trace (Negative); Nitrate Urine Negative (Negative); Protein Urine 2+ (Negative); Specific Gravity, Urine 1.015 (1.005-1.030); Urine Appearance SL Hazy (CLEAR); Urine Color Yellow (Yellow); Urobilinogen Urine Norm (Negative); pH Urine 5 (5-7)
[2020-05-04 10:19] LABS: Bacteria Urine 1+ /hpf; Mucus Urine 1+ /hpf; Squamous Epithelial Cell Urine 0-4 /hpf (0-5); WBC Urine 40-55 /hpf (0-5)
[2020-05-04 10:20] LABS: Add Urine Culture? Yes
[2020-05-04 11:46] LABS: Glucose Point of Care 150 mg/dL (70-110)
[2020-05-04 17:38] LABS: Glucose Point of Care 159 mg/dL (70-110)
--- NOTE | 2020-05-04 19:28 | PC.NURSE ---
Patient does not have any complaints at this time. Patient was assisted from chair to bed. Will monitor.
[2020-05-04 20:41] LABS: Glucose Point of Care 148 mg/dL (70-110)
--- NOTE | 2020-05-04 20:49 | P.PN_ITS ---
Subjective Subjective: Interval history: Today she is feeling at her. She was still having orthopnea earlier this morning, but this appears to be improving. Denies chest pain. Vitals/I&O/Wt Last Vital Signs Temp 97.5 F L 05/04/20 19:26 Pulse 96 05/04/20 19:26 Resp 22 H 05/04/20 19:26 BP 130/76 05/04/20 19:26 Pulse Ox 95 05/04/20 19:26 05/04/20 05/04/20 05/04/20 06:59 14:59 22:59 Intake Total 150 / 150 600 / 600 Output Total 2049 Balance -1900 / -1900 600 / 600 Weight last 48 hrs Weight 80.739 kg Weight 81.102 kg Weight 78.925 kg Physical Exam Const: COMMON NORMALS: no acute distress and patient oriented x3 OTHER: Awake, alert, pleasant, conversant. Sitting up in bed. HENMT: COMMON NORMALS: oropharynx normal Neck/C-Spine: COMMON NORMALS: no JVD Resp: COMMON NORMALS: normal respiratory effort and clear to auscultation bilaterally AUSCULTATION: clear to auscultation bilaterally and rales (Few faint crackles at bases.) Cardio: COMMON NORMALS: no JVD, regular rhythm, S1 normal heart sound present, S2 normal heart sound present and No murmurs present (Cardio) RHYTHM: regular rhythm HEART SOUNDS: S1 normal heart sound present and S2 normal heart sound present GI: COMMON NORMALS: Normal to inspection, nondistended, normoactive bowel sounds present, Soft to palpation and non-tender PALPATION: Yes Soft to palpation Extremity: COMMON NORMALS: no joint enlargement GENERAL: Yes edema (2+, improving with some wrinkling noted) Neuro: COMMON NORMALS: patient oriented x3 and moves all extremities Skin: COMMON NORMALS: no rashes or lesions noted GENERAL SKIN EXAM: no rashes or lesions noted Urinary Catheter Management^: Julian: Cath Placed During This Visit: yes Reason for Continuing Indwelling Catheter: Acute Urinary Retention or Obstruction Urinary Catheter Date of Insertion: 05/03/20 Urinary Catheter Time of Insertion: 20:24 Data : 05/04/20 05:51 05/04/20 05:51 Micro: Microbiology 05/03/20 19:34 Blood Culture - Preliminary Blood NEGATIVE TO DATE 05/03/20 19:38 Blood Culture - Preliminary Blood NEGATIVE TO DATE A&P Assessment and plan (1) Acute exacerbation of congestive heart failure: Showing improvement. She is feeling better today. Still having orthopnea. This CTA was postponed. Follow-up echo -1300 mL balance continue Lasix. -Noted acute exacerbation of chronic diastolic CHF as evidenced by anasarca, BNP elevation, evidence of fluid overload on imaging -Telemetry monitoring, close monitoring of vital signs -Repeat echo ordered, last echo on record was in 07/2019 showing an ejection fraction of 62%, grade 2 diastolic dysfunction -Monitor renal function and electrolytes with diuresis -Monitor respiratory status, supplemental oxygen as needed Status: Acute Qualifiers: Heart failure type: diastolic Qualified Code(s): I50.33 - Acute on chronic diastolic (congestive) heart failure (2) Elevated d-dimer: -Noted to have d-dimer elevation, CTA ordered; venous duplex negative for DVT Discussed with patient and her daughter. CTA postponed for now due to orthopnea. -Already on anticoagulation with Xarelto Status: Acute (3) Pneumonia: No signs of sepsis at this time. Continue antibiotics. -Noted increased right basilar consolidation -Start on treatment with ceftriaxone and azithromycin -Monitor respiratory status, supplemental oxygen as needed Status: Acute Qualifiers: Pneumonia type: due to unspecified organism Laterality: right Lung location: lower lobe of lung Qualified Code(s): J18.9 - Pneumonia, unspecified organism (4) A-fib: -Telemetry monitoring -Resume metoprolol, Xarelto Status: Chronic Qualifiers: Atrial fibrillation type: unspecified Qualified Code(s): I48.91 - Unspecified atrial fibrillation (5) DM type 2 (diabetes mellitus, type 2): -Last A1c in 07/2019 was 12.6; repeat A1c -No noted insulin or hypoglycemic medications on med rec, but appears well controlled with A1c of 7. -Accu-Cheks, ISS, hypoglycemia precautions Status: Chronic Qualifiers: Diabetes mellitus remote computer terminal operator insulin use: without remote computer terminal operator use Diabetes mellitus complication status: without complication Qualified Code(s): E11.9 - Type 2 diabetes mellitus without complications (6) HTN (hypertension): -Monitor vital signs -Resume oral antihypertensives Status: Chronic Qualifiers: Hypertension type: essential hypertension Qualified Code(s): I10 - Essential (primary) hypertension (7) Fall: -Reports heavy sensation in her feet when she attempts to ambulate. This is likely secondary to acute CHF exacerbation -Fall precautions -PT Status: Acute Qualifiers: Encounter type: initial encounter Qualified Code(s): W19.XXXA - Unspecified fall, initial encounter Additional A&P Information -Morbid obesity: BMI-36 kg/m2 -cardiac consistent carb diet as tolerated -DVT ppx not needed as on AC -Dispo: home -Code status: FULL code Attestations Medical Necessity Statement*: Admission for assessment management of acute CHF exacerbation and pneumonia. Coding Level of Care Code Acute Economic Adviser for [facility] Fwd Diagnoses Acute exacerbation of congestive heart failure I50.33 Heart failure type: diastolic Elevated d-dimer R79.89 Pneumonia J18.9 Pneumonia type: due to unspecified organism Laterality: right Lung location: lower lobe of lung A-fib I48.91 Atrial fibrillation type: unspecified DM type 2 (diabetes mellitus, type 2) E11.9 Diabetes mellitus remote computer terminal operator insulin use: without residential use Diabetes mellitus complication status: without complication HTN (hypertension) I10 Hypertension type: essential hypertension Fall W19.XXXA Encounter type: initial encounter
--- NOTE | 2020-05-05 00:12 | USCV_ITS ---
Kim Mon Age: 84 Gender: F : 1935 Exam Date: 05/05/2020 09:10 Ordering Phys: Danielle Malave MD Technologist: Priscilla King Exam Location: [facility] [place] Indication: Reassess EF, significant CHF exacerbation BP: 149 / 88 HR: 102 Rhythm: Technical Quality: Fair MEASUREMENTS (Male / Female) Normal Values 2D ECHO LV Diastolic Diameter PLAX 4.8 cm 4.2 - 5.9 / 3.9 - 5.3 cm LV Systolic Diameter PLAX 3.5 cm LV Chamber Size 3.2 cm IVS Diastolic Thickness 1.3 cm 0.6 - 1.0 / 0.6 - 0.9 cm IVS Systolic Thickness 1.4 cm LVPW Diastolic Thickness 1.0 cm 0.6 - 1.0 / 0.6 - 0.9 cm LVPW Systolic Thickness 1.6 cm RV Chamber Size 2.6 cm LVOT Diameter 1.9 cm LV Ejection Fraction 2D Teich 54.2 % LA Diameter 3.8 cm LA Width 4.0 cm LA Height 7.0 cm RA Width 3.4 cm RA Height 5.0 cm Aorta at Sinotubular Diameter 2.4 cm M-MODE LV Diastolic Diameter MM 5.2 cm 4.2 - 5.9 / 3.9 - 5.3 cm LV Systolic Diameter MM 3.8 cm LV Ejection Fraction MM Teich 50.6 % IVS Diastolic Thickness MM 1.1 cm 0.6 - 1.0 / 0.6 - 0.9 cm IVS Systolic Thickness MM 1.1 cm LVPW Diastolic Thickness MM 1.1 cm 0.6 - 1.0 / 0.6 - 0.9 cm LVPW Systolic Thickness MM 1.4 cm Aortic Annulus Diameter 3.1 cm LA Ao Ratio MM 1.2 MV E Point Septal Separation 1.0 cm DOPPLER AV Peak Velocity 140.0 cm/s LVOT Peak Velocity 108.0 cm/s AV Area Cont Eq vti 2.1 cm squared AV Area Cont Eq pk 2.3 cm squared MV Area PHT 5.0 cm squared MV E' Velocity 15.0 cm/s Mitral E to MV E' Ratio 10.1 Mitral E to LV E' Lateral Ratio 10.3 Mitral E to LV E' Septal Ratio 10.0 TR Peak Velocity 318.0 cm/s TR Peak Gradient 40.4 mmHg TV Peak E Velocity 46.0 cm/s Right Atrial Pressure 8.0 mmHg Pulmonary Artery Systolic Pressu 48.4 mmHg PV Peak Velocity 60.0 cm/s RV Acceleration Time 0.1 s RV Ejection Time 0.3 s RV AcT/ET 0.3 FINDINGS Left Ventricle Normal left ventricular cavity size. Mildly increased left ventricular cavity size. Mildly decreased left ventricular systolic function. Global left ventricular hypokinesis. Left ventricular ejection fraction is estimated at 50 %. Due to foreshortening of left ventricle cavity estimation of ejection fraction may not be accurate. In the presence of atrial fibrillation diastolic function cannot be assessed accurately. There appeared to be possible pleural effusion noted. Right Ventricle The right ventricle is normal in size and function. Moderate pulmonary hypertension, RVSP 48.4 mmHg. Right Atrium Moderately increased right atrial size. Left Atrium Moderately increased left atrial size. Mitral Valve Moderately thickened mitral valve. No mitral valve stenosis. Severe mitral valve regurgitation. Aortic Valve Severe aortic valve calcification. No aortic valve stenosis. Mild aortic valve regurgitation. Tricuspid Valve Severe tricuspid valve regurgitation. Pulmonic Valve Trace pulmonary valve regurgitation. Pericardium Normal pericardium without effusion. Aorta Normal ascending aorta dimension. CONCLUSIONS 1-Normal left ventricular cavity size. Mildly increased left ventricular cavity size. Mildly decreased left ventricular systolic function. Global left ventricular hypokinesis. Left ventricular ejection fraction is estimated at 50 %. Due to foreshortening of left ventricle cavity estimation of ejection fraction may not be accurate. In the presence of atrial fibrillation diastolic function cannot be assessed accurately. There appeared to be possible pleural effusion noted. 2-The right ventricle is normal in size and function. Moderate pulmonary hypertension, RVSP 48.4 mmHg. 3-Severe aortic valve calcification. No aortic valve stenosis. Mild aortic valve regurgitation. 4-Moderately thickened mitral valve. No mitral valve stenosis. Severe mitral valve regurgitation. 5-Severe tricuspid valve regurgitation. 6-Moderate biatrial enlargment. 7-There is no pericardial effusion. 8-Right atrial pressure is around 10 mm of mercury. 9-When compared to the prior echocardiogram dated 08/19/19, there is worsenig of mitral and tricuspid valve regurgitation from mild to severe now, there is also noted to have pleural effusion, Ejection fraction may have mildy reduced to 50%. Jeremy Vargas MD (Electronically Signed) Final Date: 05 May 2020 12:39 S
[2020-05-05] MEDS: azithromycin 500 MG in sodium chloride 0.9% 250 ML 250 MG IV (00:15)
--- NOTE | 2020-05-05 03:01 | PC.NURSE ---
Patient is currently resting in bed with eyes closed. Will monitor.
[2020-05-05 03:52] VITALS: BP 135/79; PULSE 98; RESP 25; TEMP 36.7; O2SAT 97
[2020-05-05 06:20] LABS: Basophils # 0.1 10^3/uL (0.0-0.1); Basophils % 1.5 %; Eosinophils # 0.4 10^3/uL (0.0-0.8); Hematocrit 28.3 % (37.0-47.0); Hemoglobin 8.9 g/dL (11.5-15.3); Lymphocytes # 1.6 10^3/uL (0.8-4.8); Lymphocytes % 29.6 %; Mean Corpuscular HGB Conc 31.4 g/dL (30.0-36.0); Mean Corpuscular Volume 82.7 fL (81-99); Mean Platelet Volume 9.2 fL (7.4-10.4); Monocytes # 0.7 10^3/uL (0.2-0.9); Monocytes % 13.3 %; Neutrophils % 47.4 %; Nucleated Red Blood Cells % 0 %; Platelet Count 333 10^3/cmm (130-400); Red Blood Count 3.42 10^6/uL (4.1-5.3); Red Cell Distribution Width 15.5 % (12.1-15.1); White Blood Count 5.5 10^3/uL (4.0-10.0)
[2020-05-05 06:31] LABS: Glucose Point of Care 101 mg/dL (70-110)
[2020-05-05 07:02] LABS: Blood Urea Nitrogen 35 mg/dL (8-23); Calcium 8.5 mg/dL (8.5-10.5); Carbon Dioxide 24 mmol/L (22-29); Chloride 105 mmol/L (98-107); Glucose 105 mg/dL (65-115); Osmolality Calculated 286 mOsm/kg (285-295); Sodium 139 mmol/L (136-145)
[2020-05-05 08:00] VITALS: BP 153/84; PULSE 100; RESP 27; TEMP 36.4; O2SAT 97
[2020-05-05 08:04] VITALS: PULSE 100; O2SAT 96
[2020-05-05] MEDS: metoprolol tartrate 25 mg Tablet 12.5 MG PO ×2 (09:00→17:39)
--- NOTE | 2020-05-05 09:00 | CTR_ITS ---
PROCEDURE INFORMATION: Exam: CT Angiography Chest With Contrast Exam date and time: 05/05/2020 10:06 AM Age: 84 years old Clinical indication: Dyspnea TECHNIQUE: Imaging protocol: Computed tomographic angiography of the chest with intravenous contrast. 3D rendering (Not supervised by radiologist): MIP and/or 3D reconstructed images were created by the technologist. Radiation optimization: All CT scans at this facility use at least one of these dose optimization techniques: automated exposure control; mA and/or kV adjustment per patient size (includes targeted exams where dose is matched to clinical indication); or iterative reconstruction. Contrast material: OMNIPAQUE 350; Contrast volume: 95 ml; Contrast route: INTRAVENOUS (IV); COMPARISON: CT chest wo con [id number] 08/18/2019 12:50 PM RADIATION DOSE METRICS: Total DLP (mGy-cm): 497.53 FINDINGS: Pulmonary arteries: No sign of pulmonary embolism. Aorta: The thoracic aorta is atherosclerotic. No aneurysm or displaced intimal calcifications. 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 Lungs: There is compressive atelectasis in both lower lobes, worse on the right, as well as the right middle lobe. Pleural space: There is a large right pleural effusion, and a moderate size left pleural effusion. No pneumothorax. Heart: The cardiac silhouette is not enlarged. No pericardial effusion. There is coronary artery disease. Lymph nodes: No pathologically enlarged lymph nodes. Bones/joints: Multilevel disc degeneration in the thoracic spine. There is diffuse idiopathic skeletal hyperostosis. Soft tissues: There is bilateral diffuse subcutaneous body wall edema. CT/CT angio chest PE protcl [id number] IMPRESSION: 1. No sign of pulmonary embolism. 2. Bilateral, asymmetric pleural effusions and compressive atelectasis. Radiation Dose CTDIVOL = (mGy): DLP = 497.53 (mGy-cm)
[2020-05-05] MEDS: rivaroxaban 10 mg Tablet 20 MG PO (09:02)
[2020-05-05] MEDS: amlodipine 10 mg Tablet PO (09:02)
[2020-05-05] MEDS: FUROsemide 10 mg/mL SDV 10mL 60 MG IVP ×2 (09:16→20:38)
--- NOTE | 2020-05-05 09:50 | PM.PN ---
Subjective Subjective: Interval history: She is feeling a little better. But still needs to sit up to sleep. No chest pain. Vitals/I&O/Wt Last Vital Signs Temp 97.6 F 05/05/20 08:00 Pulse 100 05/05/20 08:04 Resp 27 H 05/05/20 08:00 BP 153/84 05/05/20 08:00 Pulse Ox 96 05/05/20 08:04 05/04/20 05/05/20 05/05/20 22:59 06:59 14:59 Intake Total 300 / 900 Output Total 1175 / 1175 Balance -875 / -275 Weight last 48 hrs Weight 79.605 kg Weight 80.739 kg Weight 81.102 kg Weight 78.925 kg Physical Exam Const: COMMON NORMALS: no acute distress and patient oriented x3 OTHER: Speaking in full sentences. Sitting up in bed. HENMT: COMMON NORMALS: oropharynx normal Neck/C-Spine: COMMON NORMALS: no JVD Resp: COMMON NORMALS: normal respiratory effort AUSCULTATION: rales (Few faint crackles at bases.) and diminished lung sounds bilateral in the lower lung colón Cardio: COMMON NORMALS: no JVD, regular rhythm, S1 normal heart sound present, S2 normal heart sound present and No murmurs present (Cardio) RHYTHM: regular rhythm HEART SOUNDS: S1 normal heart sound present and S2 normal heart sound present GI: COMMON NORMALS: Normal to inspection, nondistended, normoactive bowel sounds present, Soft to palpation and non-tender PALPATION: Yes Soft to palpation Extremity: COMMON NORMALS: no joint enlargement GENERAL: Yes edema (2+, improving with some wrinkling noted) Neuro: COMMON NORMALS: patient oriented x3 and moves all extremities Skin: COMMON NORMALS: no rashes or lesions noted GENERAL SKIN EXAM: no rashes or lesions noted Urinary Catheter Management^: Julian: Cath Placed During This Visit: yes Reason for Continuing Indwelling Catheter: Acute Urinary Retention or Obstruction Urinary Catheter Date of Insertion: 05/03/20 Urinary Catheter Time of Insertion: 20:24 Data : 05/05/20 05:49 05/05/20 05:49 Micro: Microbiology 05/04/20 09:10 Urine Culture - Preliminary Urine,Clean Catch 05/03/20 19:34 Blood Culture - Preliminary Blood NEGATIVE TO DATE 09/11/20 19:38 Blood Culture - Preliminary Blood NEGATIVE TO DATE A&P Assessment and plan (1) Acute exacerbation of congestive heart failure: Slow improvement. Still significant orthopnea. The CTA was postponed. LE edema gradually improving. Pleural effusion. Tomorrow consider reaching out to IR to see if there is enough fluid to drain, CTA should help with assessment. Follow-up echo results Increase Lasix to 60 mg twice daily as urine output can be better. -Noted acute exacerbation of chronic diastolic CHF as evidenced by anasarca, BNP elevation, evidence of fluid overload on imaging -Telemetry monitoring, close monitoring of vital signs -last echo on record was in 07/2019 showing an ejection fraction of 62%, grade 2 diastolic dysfunction -Monitor renal function and electrolytes with diuresis -Monitor respiratory status, supplemental oxygen as needed Status: Acute Qualifiers: Heart failure type: diastolic Qualified Code(s): I50.33 - Acute on chronic diastolic (congestive) heart failure (2) Elevated d-dimer: -Noted to have d-dimer elevation, CTA ordered; venous duplex negative for DVT Discussed with patient and her daughter. CTA wants little bit improvement in orthopnea. -Already on anticoagulation with Xarelto Status: Acute (3) Pneumonia: No signs of sepsis at this time. Continue antibiotics. -Noted increased right basilar consolidation -Start on treatment with ceftriaxone and azithromycin -Monitor respiratory status, supplemental oxygen as needed Status: Acute Qualifiers: Pneumonia type: due to unspecified organism Laterality: right Lung location: lower lobe of lung Qualified Code(s): J18.9 - Pneumonia, unspecified organism (4) A-fib: -Telemetry monitoring -metoprolol, Xarelto Status: Chronic Qualifiers: Atrial fibrillation type: unspecified Qualified Code(s): I48.91 - Unspecified atrial fibrillation (5) DM type 2 (diabetes mellitus, type 2): -Last A1c in 07/2019 was 12.6; repeat A1c -No noted insulin or hypoglycemic medications on med rec, but appears well controlled with A1c of 7. -Accu-Cheks, ISS, hypoglycemia precautions Status: Chronic Qualifiers: Diabetes mellitus community recreation programmer insulin use: without community recreation programmer use Diabetes mellitus complication status: without complication Qualified Code(s): E11.9 - Type 2 diabetes mellitus without complications (6) HTN (hypertension): -Monitor vital signs -Resume oral antihypertensives Status: Chronic Qualifiers: Hypertension type: essential hypertension Qualified Code(s): I10 - Essential (primary) hypertension (7) Fall: -Reports heavy sensation in her feet when she attempts to ambulate. This is likely secondary to acute CHF exacerbation -Fall precautions -PT Status: Acute Qualifiers: Encounter type: initial encounter Qualified Code(s): W19.XXXA - Unspecified fall, initial encounter Additional A&P Information Acute on chronic anemia: Hemoglobin down to 8.9. Request Hemoccult. MCV low normal. Ferritin normal. Iron studies. -Morbid obesity: BMI-36 kg/m2 -cardiac consistent carb diet as tolerated -DVT ppx not needed as on AC -Dispo: home -Code status: FULL code Attestations Medical Necessity Statement*: Continue admission for assessment and management of CHF exacerbation, pneumonia, pleural effusion. Coding Level of Care Code Acute Agent T[employer] for [facility] Fwd Diagnoses Acute exacerbation of congestive heart failure I50.33 Heart failure type: diastolic Elevated d-dimer R79.89 Pneumonia J18.9 Pneumonia type: due to unspecified organism Laterality: right Lung location: lower lobe of lung A-fib I48.91 Atrial fibrillation type: unspecified DM type 2 (diabetes mellitus, type 2) E11.9 Diabetes mellitus community recreation programmer insulin use: without community recreation programmer use Diabetes mellitus complication status: without complication HTN (hypertension) I10 Hypertension type: essential hypertension Fall W19.XXXA Encounter type: initial encounter
[2020-05-05] MEDS: iohexol 350 mg/mL 100 mL Btl IV (10:25)
[2020-05-05 11:34] LABS: Glucose Point of Care 126 mg/dL (70-110)
[2020-05-05 12:00] VITALS: BP 123/61; PULSE 70; RESP 19; TEMP 36.6; O2SAT 97
[2020-05-05 16:38] LABS: Glucose Point of Care 154 mg/dL (70-110)
[2020-05-05 18:55] VITALS: BP 128/67; PULSE 92; RESP 23; TEMP 37; O2SAT 96
--- NOTE | 2020-05-05 19:48 | PC.NURSE ---
Dr. Jessica notified that left foot wound between 4th and 5th digit did not have any drainage and just appeared to be a scab. Wound was cleaned with saline and sample was collected from wound bed.
[2020-05-05 20:16] LABS: Glucose Point of Care 246 mg/dL (70-110)
[2020-05-05] MEDS: atorvastatin 40 mg Tablet PO (20:38)
[2020-05-06] VITALS (8 sets, daily range): BP systolic 119–141; BP diastolic 59–79; PULSE 90–99; RESP 15–28; TEMP 36.3–36.8; O2SAT 96–98
[2020-05-06] MEDS: cefTRIAXone 1,000 MG in sodium chloride 0.9% (plus) 50 ML 100 MG IV ×2 (00:05→23:47)
--- NOTE | 2020-05-06 00:05 | PC.NURSE ---
Pt resting comfortably in chair. Asked pt if she would like to go to bed and she said I am more comfortable in my chair .
[2020-05-06] MEDS: azithromycin 500 MG in sodium chloride 0.9% 250 ML 250 MG IV (00:39)
--- NOTE | 2020-05-06 00:46 | PC.NURSE ---
Patient has been sleeping in reclining chair tonight. Patient states that she does not want to go back to bed and wants to continue sleeping in recliner. Patient has call light within reach. Will monitor.
[2020-05-06 05:05] LABS: Basophils # 0.1 10^3/uL (0.0-0.1); Basophils % 1.2 %; Eosinophils # 0.4 10^3/uL (0.0-0.8); Eosinophils % 6.2 %; Hematocrit 29.2 % (37.0-47.0); Lymphocytes # 1.5 10^3/uL (0.8-4.8); Lymphocytes % 21.5 %; Mean Corpuscular HGB Conc 30.8 g/dL (30.0-36.0); Mean Corpuscular Hemoglobin 25.6 pg (28.0-34.0); Mean Corpuscular Volume 83.2 fL (81-99); Mean Platelet Volume 8.8 fL (7.4-10.4); Monocytes # 0.8 10^3/uL (0.2-0.9); Monocytes % 11.2 %; Neutrophils # 4.05 10^3/uL (1.8-7.7); Neutrophils % 59.6 %; Nucleated Red Blood Cells % 0 %; Platelet Count 359 10^3/cmm (130-400); Red Blood Count 3.51 10^6/uL (4.1-5.3); Red Cell Distribution Width 15.4 % (12.1-15.1); White Blood Count 6.8 10^3/uL (4.0-10.0)
[2020-05-06 05:36] LABS: Alanine Aminotransferase 12 U/L (0-33); Albumin Level 3.1 g/dL (3.5-5.2); Alkaline Phosphatase 88 IU/L (35-105); Anion Gap 16.1 (5-19); Aspartate Amino Transferase 16 U/L (0-32); Blood Urea Nitrogen 39 mg/dL (8-23); Calcium 8.6 mg/dL (8.5-10.5); Carbon Dioxide 23 mmol/L (22-29); Chloride 100 mmol/L (98-107); Globulin 2.8 g/dL (1.3-4.6); Glucose 106 mg/dL (65-115); Osmolality Calculated 278 mOsm/kg (285-295); Potassium 4.1 mmol/L (3.5-5.1); Sodium 135 mmol/L (136-145); Total Bilirubin 0.2 mg/dL (0.15-1.2); Total Protein 5.9 g/dL (6.6-8.7)
[2020-05-06 05:58] LABS: Iron 27 ug/dL (37-145); Percent Saturation 10.4 % (20-50); Total Iron Binding Capacity 258 mcg/dl; Unsaturated Iron Binding 231 ug/dL (112-347)
[2020-05-06 06:36] LABS: Glucose Point of Care 106 mg/dL (70-110)
[2020-05-06] MEDS: FUROsemide 10 mg/mL SDV 10mL 60 MG IVP ×2 (08:08→19:26)
[2020-05-06] MEDS: amlodipine 10 mg Tablet PO (08:09)
[2020-05-06] MEDS: metoprolol tartrate 25 mg Tablet 12.5 MG PO ×2 (08:09→17:55)
[2020-05-06 11:03] LABS: Glucose Point of Care 146 mg/dL (70-110)
--- NOTE | 2020-05-06 11:30 | PC.SOCIAL ---
IMM Page 2 of IMM explained to patient. Initialed, dated, and timed and placed in chart. Copy provided to patient.
--- NOTE | 2020-05-06 15:12 | PM.PN ---
Subjective Subjective: Interval history: No acute events overnight. She states she is feeling a little better. But still needs to sit up to sleep. No chest pain, N/V, headache, dizziness, abdominal pain. Vitals/I&O/Wt Last Vital Signs Temp 98.3 F 05/06/20 11:27 Pulse 96 05/06/20 11:54 Resp 25 H 05/06/20 11:27 BP 119/59 05/06/20 11:27 Pulse Ox 97 05/06/20 11:27 05/06/20 05/06/20 05/06/20 06:59 14:59 22:59 Intake Total 800 / 1640 600 / 600 Output Total 1000 / 2750 900 / 900 Balance -200 / -1110 -300 / -300 Weight last 48 hrs Weight 71.753 kg Weight 79.605 kg Physical Exam Narrative: EXAM NARRATIVE: General: No acute distress, AO x3 HEENT: PERRLA, pupils bilaterally equal and reactive Chest: Normal vesicular breath sounds, no added sounds, equal good air entry bilaterally CVS: Elevated JVD, S1S2 irregular, PSM 3/6 at apex radiating to post axillary line, PSM at tricuspid region, S3 gallop Abdomen: Soft, nontender, no organomegaly, bowel sounds present Neuro: No focal deficits, no facial deformity, AO x3, power 5/5 in all limbs Urinary Catheter Management^: Julian: Cath Placed During This Visit: yes Reason for Continuing Indwelling Catheter: Acute Urinary Retention or Obstruction Urinary Catheter Date of Insertion: 05/03/20 Urinary Catheter Time of Insertion: 20:24 Data : 05/06/20 04:08 05/06/20 04:08 Micro: Microbiology 05/04/20 09:10 Urine Culture - Final Urine,Clean Catch 05/05/20 15:07 Occult Blood (FIT) - Final Stool - Stool Aspirate A&P Assessment and plan (1) Acute exacerbation of congestive heart failure: Status: Acute Qualifiers: Heart failure type: diastolic Qualified Code(s): I50.33 - Acute on chronic diastolic (congestive) heart failure (2) Elevated d-dimer: Status: Acute (3) Pneumonia: No signs of sepsis at this time. Continue antibiotics. -Noted increased right basilar consolidation Continue ceftriaxone. Patient has already received 3 days of azithromycin will stop. CT scan negative for any consolidation. Status: Acute Qualifiers: Laterality: right Lung location: lower lobe of lung Pneumonia type: due to unspecified organism Qualified Code(s): J18.9 - Pneumonia, unspecified organism (4) A-fib: Rate controlled. Continue telemetry monitoring. Continue with current dose of metoprolol. There is confusion regarding the anticoagulation patient is on at home. Will discuss with pharmacy and primary care provider what medication she takes is on anticoagulation and continue. Patient is not getting thoracocentesis anymore so we will restart her anticoagulation. Status: Chronic Qualifiers: Atrial fibrillation type: unspecified Qualified Code(s): I48.91 - Unspecified atrial fibrillation (5) Pleural effusion: Status: Acute (6) Severe mitral regurgitation: Status: Acute (7) Tricuspid regurgitation: Status: Acute (8) Fall: -Reports heavy sensation in her feet when she attempts to ambulate. This is likely secondary to acute CHF exacerbation -Fall precautions -PT Status: Acute Qualifiers: Encounter type: initial encounter Qualified Code(s): W19.XXXA - Unspecified fall, initial encounter (9) HTN (hypertension): Status: Chronic Qualifiers: Hypertension type: essential hypertension Qualified Code(s): I10 - Essential (primary) hypertension (10) DM type 2 (diabetes mellitus, type 2): HbA1c 7. -Accu-Cheks, ISS, hypoglycemia precautions Status: Chronic Qualifiers: Diabetes mellitus complication status: without complication Diabetes mellitus intermediate insulin use: without application counselor use Qualified Code(s): E11.9 - Type 2 diabetes mellitus without complications Additional A&P Information Acute hypoxic respiratory failure/hypoxia: Because of congestive heart failure. By valvular disorder. Echocardiogram done this admission consistent with EF 50% with global LV hypokinesia with severe mitral regurgitation, moderate pulmonary hypertension, severe tricuspid regurgitation. At present patient is on Lasix 60 mg IV twice daily. For now continue the same. Fluid restriction up to 1500 cc. Strict input output charting, daily weights. Oxygen supplementation keeping saturation over 90%. We will consult cardiology for possible mitral clip as an outpatient. Because patient has severe mitral regurgitation she might benefit from preload reduction. We will stop amlodipine. We will see if we can introduce Imdur at a lower dose and uptitrate accordingly. Pleural effusion: Discussed the CAT scan with parent aide research and evaluation analyst. As per Dr. Murphy as patient's pleural effusion is most likely because of congestive heart failure it would be best to avoid thoracocentesis if possible. As patient is improving and is requiring 2 L oxygen supplementation to maintain a saturation of 95% the best would be to avoid the procedure for now and monitor her as an outpatient. Elevated d-dimer: CTA negative for pulmonary embolism. Hypertension: Goal blood pressure less than 140/90 mmHg. Stop amlodipine. We will try to see if he can introduce Imdur. Acute on chronic anemia: Hemoglobin down to 8.9. Request Hemoccult. MCV low normal. Ferritin normal. Iron studies. -Morbid obesity: BMI-36 kg/m2 -cardiac consistent carb diet as tolerated -DVT ppx not needed as on AC -Dispo: home -Code status: FULL code Patient's care was discussed in detail with her daughter. She is agreeable to the plan of treatment. Attestations Medical Necessity Statement*: Acute hypoxic respiratory failure, congestive heart failure, severe mitral regurgitation Time Spent in Patient Care: Greater than 35 minutes (>than 50% of time spent in counselling and/or direct pt care on unit). Coding Level of Care Code Acute Cfo Controller for Abdulaziz Rened Diagnoses Acute exacerbation of congestive heart failure I50.33 Heart failure type: diastolic Elevated d-dimer R79.89 Pneumonia J18.9 Laterality: right Lung location: lower lobe of lung Pneumonia type: due to unspecified organism A-fib I48.91 Atrial fibrillation type: unspecified Pleural effusion J90 Severe mitral regurgitation I34.0 Tricuspid regurgitation I07.1 Fall W19.XXXA Encounter type: initial encounter HTN (hypertension) I10 Hypertension type: essential hypertension DM type 2 (diabetes mellitus, type 2) E11.9 Diabetes mellitus complication status: without complication Diabetes mellitus intermediate insulin use: without application counselor use
[2020-05-06 17:00] LABS: Glucose Point of Care 173 mg/dL (70-110)
--- NOTE | 2020-05-06 17:42 | PM.CONSULT ---
Providers/Reason For Consult Consulting Physican/Specialty*: Dr. Jaffe, cardiology Reason for Consult*: Decompensated CHF, Severe MR/ Attending Physician: Warner Bautista MD Primary Care Provider: Mini Little DO History of Present Illness History of Present Illness Kim Mon is a 84 year old female with PMHx of hypertension, 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 h/o iodine allergy, shrimp/ shellfish allergy (possible angioedema/anaphylaxis per daughter) and paroxysmal atrial fibrillation on Eliquis presented from home due to worsening shortness of breath, generalized swelling in bilateral legs for the past 4 to 6 weeks. She also had orthopnea, abdominal wall distention, and increasing shortness of breath even with minimal exertion. No sick contacts, URI/ UTI like symptoms. She is not really good with outpatient follow ups and her daughter Leighann had a hard time convincing her to go to PCP on Wednesday. She saw DR. iLttle and was sent to the ER for further follow up. Her initial hemoglobin of 10.5, normal electrolytes and creatinine, BUN of 37, rapid COVID screen is negative, d-dimer is 2.73. venous duplex was negative for DVT. Chest x-ray shows a right basilar consolidation, BNP is 5491. EKG on arrival showed sinus rhythm with first degree AV block. Echo showed drop in LV function, severe MR and TR. Review of Systems Const: Denies: fever(s), chills, change in appetite, change in weight, fatigue or malaise ENMT: Denies: throat pain, bleeding gums, epistaxis or post nasal drip Card: Reports: edema, swelling of feet/ankles, dyspnea on exertion and orthopnea; Denies: chest pain, palpitations, irregular heart rhythm, lightheadedness, syncope or leg pain with exertion Resp: Reports: dyspnea and productive cough; Denies: wheezing or hemoptysis GI: Reports: abdominal pain and bloating; Denies: nausea, vomiting, heartburn, diarrhea, constipation, change in bowel habits, hematochezia or melena : Denies: difficulty voiding, dysuria, oliguria or hematuria Musc: Denies: back pain, extremity swelling, joint pain or muscle weakness Skin/Breast: Denies: rash, erythema or new lesions Neuro: Denies: numbness in extremities, weakness in extremities, lack of coordination, difficulty walking, dizziness, vertigo or confusion Psych: Denies: anxiety, depression or irritability Endo: Denies: tired all the time, cold intolerance or heat intolerance Sanchez/Lymph: Denies: easy bruising, easy bleeding, petechiae or purpura Meds/Allergies Home Medications and Allergies Home Medications Medication Instructions Recorded Confirmed Last Taken Type amlodipine 10 mg PO DAILY #30 tab 08/23/19 05/04/20 05/03/20 08:00 Rx atorvastatin 40 mg PO BEDTIME #30 tab 08/23/19 05/04/20 05/02/20 21:00 Rx furosemide 20 mg PO BREAKFAST #30 tab 08/23/19 05/04/20 05/03/20 08:00 Rx metoprolol tartrate 12.5 mg PO BID #30 tab 08/23/19 05/04/20 05/03/20 20:00 Rx apixaban [Eliquis] 5 mg PO BID 05/05/20 05/05/20 Unknown History Allergies Allergy/AdvReac Type Severity Reaction Status Date / Time shrimp Allergy Severe Unknown Verified 08/22/19 16:29 shellfish derived Allergy Unknown Unknown Verified 08/22/19 16:29 Current Medications Current Medications Generic Name Dose Route Start Last Admin Trade Name Freq PRN Reason Stop Dose Admin Atorvastatin Calcium 40 mg 05/05/20 21:00 05/05/20 20:38 Lipitor PO 40 mg BEDTIME GABY Administration Furosemide 60 mg 05/05/20 08:30 05/06/20 08:08 Lasix IVP 60 mg Q12H GABY Administration Ceftriaxone Sodium 1,000 mg/ 50 mls @ 100 mls/hr 05/04/20 00:30 05/06/20 00:39 Sodium Chloride IV Infused Q24H GABY Infusion Protocol Insulin Aspart 0 unit 05/04/20 08:00 05/06/20 11:52 Novolog SUBCUT 2 unit WM&BEDTIME GABY Administration Protocol Metoprolol Tartrate 12.5 mg 05/04/20 09:00 05/06/20 08:09 Lopressor PO 12.5 mg BID GABY Administration Rivaroxaban 20 mg 05/04/20 09:00 05/05/20 09:02 Xarelto PO 20 mg DAILY GABY Administration PFSH Acute PFSH: Medical History (HFpEF) heart failure with preserved ejection fraction A-fib Cerebellar artery occlusion or stenosis Cholelithiasis DM type 2 (diabetes mellitus, type 2) Hip pain HTN (hypertension) Thyroid goiter Tricuspid valve disorder Surgical History No pertinent past surgical history Family History Mother Cancer Father CAD (coronary artery disease) Sister Diabetes Social History Smoking and tobacco status: never smoked Second hand smoke exposure: Yes Alcohol intake: never Substance/Drug Use: never Household members: significant other Vitals/I&O/Wt Last Vital Signs Temp 97.3 F L 05/06/20 17:07 Pulse 98 05/06/20 17:07 Resp 28 H 05/06/20 17:07 BP 141/75 05/06/20 17:07 Pulse Ox 97 05/06/20 17:07 05/06/20 05/06/20 05/06/20 06:59 14:59 22:59 Intake Total 800 / 1640 600 / 600 Output Total 1000 / 2750 900 / 900 Balance -200 / -1110 -300 / -300 Weight last 48 hrs Weight 158 lb 3 oz Weight 175 lb 8 oz Physical Exam Const: COMMON NORMALS: no acute distress, patient oriented x3 and alert GENERAL APPEARANCE: cooperative, comfortable, well kempt and well hydrated HENMT: COMMON NORMALS: normocephalic, atraumatic, hearing grossly normal bilaterally, external ears normal and moist oral mucous membranes HEAD & SCALP: normocephalic and atraumatic FACE & SINUS: normal facial exam; no edema EXTERNAL EAR: Yes external ears normal Eye: COMMON NORMALS: Equal, round and reactive pupils present, EOMs intact bilaterally, conjunctivae normal and no scleral icterus GENERAL EYE: appearance normal, both eyes and all related structures ALIGNMENT: Yes alignment normal CONJUNCTIVA: Yes conjunctivae normal SCLERA: sclerae normal PUPIL: Yes Equal, round and reactive pupils present Neck/C-Spine: COMMON NORMALS: no lymphadenopathy, supple and Thyroid normal GENERAL: Yes normal visual inspection, Yes trachea midline and Yes JVD THYROID: Thyroid normal CAROTIDS: Yes normal carotid upstroke CERVICAL SPINE: Yes cervical ROM normal Chest: COMMONS NORMALS: normal inspection of the chest and normal palpation of entire chest wall CHEST: Yes Symmetrical chest wall rise and No tenderness Resp: COMMON NORMALS: clear to auscultation bilaterally EFFORT & INSPECTION: Yes able to speak in complete sentences and No tachypneic AUSCULTATION: clear to auscultation bilaterally, no crackles, rales, no rhonchi, no wheezes, breath sounds absent bilateral (basal (R>L)) and vesicular breath sounds Cardio: COMMON NORMALS: regular rate, regular rhythm, S1 normal heart sound present, S2 normal heart sound present and Peripheral pulses 2+ throughout PALPATION: normal PMI RATE: regular rate RHYTHM: regular rhythm HEART SOUNDS: S1 normal heart sound present, S2 normal heart sound present, no gallops and no murmurs BRUITS: no carotid bruits, no femoral bruits and no renal bruits PERIPHERAL PULSES: Peripheral pulses 2+ throughout, radial pulses present, posterior tibial pulses present and dorsalis pedis present GI: COMMON NORMALS: Soft to palpation AUSCULTATION: Yes normoactive bowel sounds PALPATION: Yes Soft to palpation, No Tenderness to palpation present (GI), No Guarding due to palpation present (GI) and No Rigid due to palpation Extremity: GENERAL: No calf tenderness, No clubbing, No cyanosis, Yes edema (3-4+ edema bilateral legs) and No pallor Neuro: COMMON NORMALS: patient oriented x3, CN's II-XII intact bilaterally and no focal motor deficits SENSORIUM/ORIENTATION: Yes alert Psych: COMMON NORMALS: Normal thought process present and speech normal APPEARANCE: Yes well kempt SPEECH: Yes normal speech MOOD & AFFECT: Yes euthymic mood THOUGHT PROCESS: Normal thought process present THOUGHT CONTENT: Yes Normal thought content present Urinary Catheter Management^: Julian: Cath Placed During This Visit: yes Reason for Continuing Indwelling Catheter: Acute Urinary Retention or Obstruction Urinary Catheter Date of Insertion: 05/03/20 Urinary Catheter Time of Insertion: 20:24 Data Micro: Micro: Microbiology 05/04/20 09:10 Urine Culture - Fi nal Urine,Clean Catch 05/05/20 15:07 Occult Blood (FIT) - Final Stool - Stool Asp irate Imaging^: Echo: I personally reviewed and interpreted this imaging study as follows: My impression: 1-Normal left ventricular cavity size. Mildly increased left ventricular cavity size. Mildly decreased left ventricular systolic function. Global left ventricular hypokinesis. Left ventricular ejection fraction is estimated at 50 %. Due to foreshortening of left ventricle cavity estimation of ejection fraction may not be accurate. In the presence of atrial fibrillation diastolic function cannot be assessed accurately. There appeared to be possible pleural effusion noted. 2-The right ventricle is normal in size and function. Moderate pulmonary hypertension, RVSP 48.4 mmHg. 3-Severe aortic valve calcification. No aortic valve stenosis. Mild aortic valve regurgitation. 4-Moderately thickened mitral valve. No mitral valve stenosis. Severe mitral valve regurgitation. 5-Severe tricuspid valve regurgitation. 6-Moderate biatrial enlargment. 7-There is no pericardial effusion. 8-Right atrial pressure is around 10 mm of mercury. 9-When compared to the prior echocardiogram dated 08/19/19, there is worsenig of mitral and tricuspid valve regurgitation from mild to severe now, there is also noted to have pleural effusion, Ejection fraction may have mildy reduced to 50%. Other Data: Other data: # TTE (07/2019) CONCLUSIONS 1-Normal left ventricular cavity size. Normal left ventricular systolic function. No regional wall motion abnormalities. Left ventricular ejection fraction is estimated at 62 %. Grade II/IV diastolic dysfunction, moderately elevated filling pressures. 2-Thickened tricuspid valve noted, calcified mass on the posterior cusp of tricuspid valve is noted, cannot rule out vegetation,mild tricuspid valve regurgitation. clinical correlation advised. 3-Moderate aortic valve calcification. Mild aortic valve stenosis, mean gradient 5.6 mmHg, DOMINICK 1.9 cm squared. Mild aortic valve regurgitation. 4-There is no pericardial effusion. 5-Pulmonary artery systolic pressure is within normal limits. 6-Right atrial pressure is around 5 mm of mercury. 7-There are no prior echocardiogram studies to compare. 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 A&P Assessment and plan (1) Acute exacerbation of congestive heart failure: ACC/AHA stage C, NYHA class 3-4 symptoms. -Diuresing well on lasix 60 mg IV BID. -Drop in LV function with mild diffuse hypokinesis. -Multiple CAD risk factors including advanced age, DM-2, dyslipidemia, HTN. She would need further work up (given contrast allergy would start with stress testing once euvolemic.) -continue I/O charting, daily weight Status: Acute Qualifiers: Heart failure type: diastolic Qualified Code(s): I50.33 - Acute on chronic diastolic (congestive) heart failure (2) Severe mitral regurgitation: Primary vs secondary. -Once euvolemic, FELICIANO would help understand the underlying etiology. Status: Acute (3) A-fib: remains in NSR. -ON DOAC and metoprolol. -DOAC on hold for possible thoracentesis. Status: Chronic Qualifiers: Atrial fibrillation type: paroxysmal Qualified Code(s): I48.0 - Paroxysmal atrial fibrillation (4) DM type 2 (diabetes mellitus, type 2): Status: Chronic Qualifiers: Diabetes mellitus longterm insulin use: without technician terminal and repeater use Diabetes mellitus complication status: without complication Qualified Code(s): E11.9 - Type 2 diabetes mellitus without complications (5) HTN (hypertension): Status: Chronic Qualifiers: Hypertension type: essential hypertension Qualified Code(s): I10 - Essential (primary) hypertension Additional A&P Information Bilateral pleural effusion TR Normocytic anemia Dyslipidemia Thank you for allowing me to participate in patient's care. Please feel free to call with questions or concerns. Coding Level of Care Code Acute Account Retention Representative for Chg Fwd Diagnoses Acute exacerbation of congestive heart failure I50.33 Heart failure type: diastolic Severe mitral regurgitation I34.0 A-fib I48.0 Atrial fibrillation type: paroxysmal DM type 2 (diabetes mellitus, type 2) E11.9 Diabetes mellitus technician terminal and repeater insulin use: without longterm use Diabetes mellitus complication status: without complication HTN (hypertension) I10 Hypertension type: essential hypertension
[2020-05-06] MEDS: atorvastatin 40 mg Tablet PO (19:25)
[2020-05-06 20:25] LABS: Glucose Point of Care 238 mg/dL (70-110)
[2020-05-07] VITALS (7 sets, daily range): BP systolic 115–129; BP diastolic 63–83; PULSE 90–98; RESP 16–20; TEMP 36.4–36.8; O2SAT 92–99
[2020-05-07 04:43] LABS: Basophils # 0.1 10^3/uL (0.0-0.1); Basophils % 1.3 %; Eosinophils # 0.4 10^3/uL (0.0-0.8); Eosinophils % 5.7 %; Hematocrit 30.5 % (37.0-47.0); Hemoglobin 9.5 g/dL (11.5-15.3); Lymphocytes # 1.2 10^3/uL (0.8-4.8); Lymphocytes % 17.3 %; Mean Corpuscular HGB Conc 31.1 g/dL (30.0-36.0); Mean Corpuscular Hemoglobin 25.6 pg (28.0-34.0); Mean Corpuscular Volume 82.2 fL (81-99); Mean Platelet Volume 8.7 fL (7.4-10.4); Monocytes # 0.6 10^3/uL (0.2-0.9); Monocytes % 9.6 %; Neutrophils % 65.8 %; Nucleated Red Blood Cells % 0 %; Platelet Count 374 10^3/cmm (130-400); Red Blood Count 3.71 10^6/uL (4.1-5.3); Red Cell Distribution Width 15.3 % (12.1-15.1); White Blood Count 6.7 10^3/uL (4.0-10.0)
[2020-05-07 05:01] LABS: Alanine Aminotransferase 13 U/L (0-33); Albumin Level 3.4 g/dL (3.5-5.2); Alkaline Phosphatase 86 IU/L (35-105); Anion Gap 15.2 (5-19); Aspartate Amino Transferase 14 U/L (0-32); Blood Urea Nitrogen 47 mg/dL (8-23); Calcium 8.5 mg/dL (8.5-10.5); Carbon Dioxide 25 mmol/L (22-29); Chloride 100 mmol/L (98-107); Creatinine Clr Calc Pharmacy 49.1309; Globulin 3.1 g/dL (1.3-4.6); Glucose 135 mg/dL (65-115); Osmolality Calculated 282 mOsm/kg (285-295); Potassium 4.2 mmol/L (3.5-5.1); Sodium 136 mmol/L (136-145); Total Bilirubin 0.2 mg/dL (0.15-1.2); Total Protein 6.5 g/dL (6.6-8.7)
[2020-05-07 06:25] LABS: Glucose Point of Care 129 mg/dL (70-110)
[2020-05-07] MEDS: FUROsemide 10 mg/mL SDV 10mL 60 MG IVP ×2 (08:47→17:06)
[2020-05-07] MEDS: heparin 5,000 unit/mL INJ 1 mL 5000 UNIT SUBCUT (08:47)
[2020-05-07] MEDS: metoprolol tartrate 25 mg Tablet 12.5 MG PO ×2 (08:47→17:06)
[2020-05-07 10:59] LABS: Glucose Point of Care 211 mg/dL (70-110)
--- NOTE | 2020-05-07 11:11 | PM.PN ---
Subjective Subjective: Interval history: She feels about the same. slept in chair last night. Medications: Reviewed: Yes Medication Review Details: Current Medications Acetaminophen (Tylenol) 650 mg PO Q6H PRN PRN Reason: Mild/Mod Pain Or Temp >/= 101 Atorvastatin Calcium (Lipitor) 40 mg PO BEDTIME [facility] Last Admin: 05/06/20 19:25 Dose: 40 mg Documented by: Dextrose (D50w) 25 ml IVP ONCE PRN; Protocol PRN Reason: hypoglycemia protocol Dextrose (D50w) 50 ml IVP PRN PRN; Protocol PRN Reason: hypoglycemia protocol Furosemide (Lasix) 60 mg IVP Q12H [facility] Last Admin: 05/07/20 08:47 Dose: 60 mg Documented by: Glucagon (Glucagen) 1 mg IM ONCE PRN; Protocol PRN Reason: Adult Acute Hypoglycemia Prot. Heparin Sodium (Beef Lung) (Heparin) 5,000 unit SUBCUT Q8H [facility] Last Admin: 05/07/20 08:47 Dose: 5,000 unit Documented by: Ceftriaxone Sodium 1,000 mg/ (Sodium Chloride) 50 mls @ 100 mls/hr IV Q24H [facility]; Protocol Last Infusion: 05/07/20 00:29 Dose: Infused Documented by: Dextrose (D5w) 500 mls @ 100 mls/hr IV ONCE PRN; Protocol PRN Reason: Adult Acute Hypoglycemia Prot Insulin Aspart (Novolog) 0 unit SUBCUT WM&BEDTIME [facility]; Protocol Last Admin: 05/07/20 07:29 Dose: Not Given Documented by: Metoprolol Tartrate (Lopressor) 12.5 mg PO BID [facility] Last Admin: 05/07/20 08:47 Dose: 12.5 mg Documented by: Morphine Sulfate (Morphine) 4 mg IVP Q4H PRN PRN Reason: SEVERE PAIN Nitroglycerin (Nitrostat) 0.4 mg SUBLINGUAL Q5M PRN PRN Reason: CHEST PAIN Ondansetron HCl (Zofran) 4 mg IVP Q6H PRN PRN Reason: NAUSEA AND VOMITING Rivaroxaban (Xarelto) 20 mg PO DAILY [facility] Last Admin: 05/05/20 09:02 Dose: 20 mg Documented by: Vitals/I&O/Wt Last Vital Signs Temp 98.1 F 05/07/20 08:00 Pulse 90 09/15/20 08:12 Resp 17 05/07/20 08:00 BP 124/63 05/07/20 08:00 Pulse Ox 97 05/07/20 08:12 05/06/20 05/07/20 05/07/20 22:59 06:59 14:59 Intake Total 118 / 718 100 / 818 360 / 360 Output Total 900 / 1800 350 / 2150 Balance -782 / -1082 -250 / -1332 360 / 360 Weight last 48 hrs Weight 148 lb Weight 158 lb 3 oz Intake & Output 05/05/20 05/06/20 05/07/20 05/08/20 06:59 06:59 06:59 06:59 Intake Total 900 / 900 1640 / 1640 818 / 818 360 / 360 Output Total 1175 / 1175 2750 / 2750 2150 / 2150 Balance -275 / -275 -1110 / -1110 -1332 / -1332 360 / 360 Weight 175 lb 8 oz 158 lb 3 oz 148 lb Physical Exam Narrative: EXAM NARRATIVE: Const COMMON NORMALS: no acute distress, patient oriented x3 and alert GENERAL APPEARANCE: cooperative, comfortable, well kempt and well hydrated [facility] COMMON NORMALS: normocephalic, atraumatic, hearing grossly normal bilaterally, external ears normal and moist oral mucous membranes HEAD & SCALP: normocephalic and atraumatic FACE & SINUS: normal facial exam; no edema EXTERNAL EAR: Yes external ears normal Eye COMMON NORMALS: Equal, round and reactive pupils present, EOMs intact bilaterally, conjunctivae normal and no scleral icterus GENERAL EYE: appearance normal, both eyes and all related structures ALIGNMENT: Yes alignment normal CONJUNCTIVA: Yes conjunctivae normal SCLERA: sclerae normal PUPIL: Yes Equal, round and reactive pupils present Neck/C-Spine COMMON NORMALS: no lymphadenopathy, supple and Thyroid normal GENERAL: Yes normal visual inspection, Yes trachea midline and Yes JVD THYROID: Thyroid normal CAROTIDS: Yes normal carotid upstroke CERVICAL SPINE: Yes cervical ROM normal Chest COMMONS NORMALS: normal inspection of the chest and normal palpation of entire chest wall CHEST: Yes Symmetrical chest wall rise and No tenderness Resp COMMON NORMALS: clear to auscultation bilaterally EFFORT & INSPECTION: Yes able to speak in complete sentences and No tachypneic AUSCULTATION: clear to auscultation bilaterally, no crackles, rales, no rhonchi, no wheezes, breath sounds absent bilateral (basal (R>L)) and vesicular breath sounds Cardio COMMON NORMALS: regular rate, regular rhythm, S1 normal heart sound present, S2 normal heart sound present and Peripheral pulses 2+ throughout PALPATION: normal PMI RATE: regular rate RHYTHM: regular rhythm HEART SOUNDS: S1 normal heart sound present, S2 normal heart sound present, no gallops and no murmurs BRUITS: no carotid bruits, no femoral bruits and no renal bruits PERIPHERAL PULSES: Peripheral pulses 2+ throughout, radial pulses present, posterior tibial pulses present and dorsalis pedis present GI COMMON NORMALS: Soft to palpation AUSCULTATION: Yes normoactive bowel sounds PALPATION: Yes Soft to palpation, No Tenderness to palpation present (GI), No Guarding due to palpation present (GI) and No Rigid due to palpation Extremity GENERAL: No calf tenderness, No clubbing, No cyanosis, Yes edema (4+ edema bilateral legs) and No pallor Neuro COMMON NORMALS: patient oriented x3, CN's II-XII intact bilaterally and no focal motor deficits SENSORIUM/ORIENTATION: Yes alert Psych COMMON NORMALS: Normal thought process present and speech normal APPEARANCE: Yes well kempt SPEECH: Yes normal speech MOOD & AFFECT: Yes euthymic mood THOUGHT PROCESS: Normal thought process present THOUGHT CONTENT: Yes Normal thought content present Urinary Catheter Management^: Julian: Cath Placed During This Visit: yes Reason for Continuing Indwelling Catheter: Accurate Measurement of Urinary Output in Critically Ill Patients Urinary Catheter Date of Insertion: 05/03/20 Urinary Catheter Time of Insertion: 20:24 Data : 05/07/20 04:12 05/07/20 04:12 Micro: Microbiology 05/04/20 09:10 Urine Culture - Final Urine,Clean Catch Other Imaging: Radiologist's impression: Echo: I personally reviewed and interpreted this imaging study as follows: My impression: 1-Normal left ventricular cavity size. Mildly increased left ventricular cavity size. Mildly decreased left ventricular systolic function. Global left ventricular hypokinesis. Left ventricular ejection fraction is estimated at 50 %. Due to foreshortening of left ventricle cavity estimation of ejection fraction may not be accurate. In the presence of atrial fibrillation diastolic function cannot be assessed accurately. There appeared to be possible pleural effusion noted. 2-The right ventricle is normal in size and function. Moderate pulmonary hypertension, RVSP 48.4 mmHg. 3-Severe aortic valve calcification. No aortic valve stenosis. Mild aortic valve regurgitation. 4-Moderately thickened mitral valve. No mitral valve stenosis. Severe mitral valve regurgitation. 5-Severe tricuspid valve regurgitation. 6-Moderate biatrial enlargment. 7-There is no pericardial effusion. 8-Right atrial pressure is around 10 mm of mercury. 9-When compared to the prior echocardiogram dated 08/19/19, there is worsenig of mitral and tricuspid valve regurgitation from mild to severe now, there is also noted to have pleural effusion, Ejection fraction may have mildy reduced to 50%. Other data: # TTE (07/2019) CONCLUSIONS 1-Normal left ventricular cavity size. Normal left ventricular systolic function. No regional wall motion abnormalities. Left ventricular ejection fraction is estimated at 62 %. Grade II/IV diastolic dysfunction, moderately elevated filling pressures. 2-Thickened tricuspid valve noted, calcified mass on the posterior cusp of tricuspid valve is noted, cannot rule out vegetation,mild tricuspid valve regurgitation. clinical correlation advised. 3-Moderate aortic valve calcification. Mild aortic valve stenosis, mean gradient 5.6 mmHg, DOMINICK 1.9 cm squared. Mild aortic valve regurgitation. 4-There is no pericardial effusion. 5-Pulmonary artery systolic pressure is within normal limits. 6-Right atrial pressure is around 5 mm of mercury. 7-There are no prior echocardiogram studies to compare. CTA chest FINDINGS: Pulmonary arteries: No sign of pulmonary embolism. Aorta: The thoracic aorta is atherosclerotic. No aneurysm or displaced intimal calcifications. 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 Lungs: There is compressive atelectasis in both lower lobes, worse on the right, as well as the right middle lobe. Pleural space: There is a large right pleural effusion, and a moderate size left pleural effusion. No pneumothorax. Heart: The cardiac silhouette is not enlarged. No pericardial effusion. There is coronary artery disease. Lymph nodes: No pathologically enlarged lymph nodes. Bones/joints: Multilevel disc degeneration in the thoracic spine. There is diffuse idiopathic skeletal hyperostosis. Soft tissues: There is bilateral diffuse subcutaneous body wall edema. IMPRESSION: 1. No sign of pulmonary embolism. 2. Bilateral, asymmetric pleural effusions and compressive atelectasis. A&P Assessment and plan (1) Acute exacerbation of congestive heart failure: ACC/AHA stage C, NYHA class 3-4 symptoms. -Diuresing well on lasix 60 mg IV BID. start on low dose metolazone. -Drop in LV function with mild diffuse hypokinesis. -Multiple CAD risk factors including advanced age, DM-2, dyslipidemia, HTN. She would need further work up (given contrast allergy would start with stress testing once euvolemic.) -continue I/O charting, daily weight Status: Acute Qualifiers: Heart failure type: diastolic Qualified Code(s): I50.33 - Acute on chronic diastolic (congestive) heart failure (2) Severe mitral regurgitation: Primary vs secondary. -Once euvolemic, FELICIANO would help understand the underlying etiology. Status: Acute (3) A-fib: -ON DOAC and metoprolol. Status: Chronic Qualifiers: Atrial fibrillation type: paroxysmal Qualified Code(s): I48.0 - Paroxysmal atrial fibrillation (4) DM type 2 (diabetes mellitus, type 2): Status: Chronic Qualifiers: Diabetes mellitus complication status: without complication Diabetes mellitus terminal gauger supervisor insulin use: without terminal gauger supervisor use Qualified Code(s): E11.9 - Type 2 diabetes mellitus without complications (5) HTN (hypertension): Status: Chronic Qualifiers: Hypertension type: essential hypertension Qualified Code(s): I10 - Essential (primary) hypertension Additional A&P Information Bilateral pleural effusion Anasarca Severe TR ? Normocytic anemia Dyslipidemia Thank you for allowing me to participate in patient's care. Please feel free to call with questions or concerns. Attestations Medical Necessity Statement*: needs hospital stay for CHF Coding Level of Care Code Acute Plate Stacker for g Fwd Diagnoses Acute exacerbation of congestive heart failure I50.33 Heart failure type: diastolic Severe mitral regurgitation I34.0 A-fib I48.0 Atrial fibrillation type: paroxysmal DM type 2 (diabetes mellitus, type 2) E11.9 Diabetes mellitus complication status: without complication Diabetes mellitus fpc insulin use: without fpc use HTN (hypertension) I10 Hypertension type: essential hypertension
--- NOTE | 2020-05-07 13:11 | P.PN_ITS ---
Subjective Subjective: Interval history: No acute events overnight. She states she is feeling better. She slept in chair overnight. On examination saturating 94% on 1 L nasal cannula. Did walk with physical therapy well in the morning today down the [place] without having any difficulty in breathing. No chest pain, N/V, headache, dizziness, abdominal pain. Vitals/I&O/Wt Last Vital Signs Temp 98.1 F 05/07/20 08:00 Pulse 90 05/07/20 08:12 Resp 17 05/07/20 08:00 BP 124/63 05/07/20 08:00 Pulse Ox 97 05/07/20 08:12 05/06/20 05/07/20 05/07/20 22:59 06:59 14:59 Intake Total 118 / 718 100 / 818 360 / 360 Output Total 900 / 1800 350 / 2150 Balance -782 / -1082 -250 / -1332 360 / 360 Weight last 48 hrs Weight 67.132 kg Weight 71.753 kg Physical Exam Narrative: EXAM NARRATIVE: General: No acute distress, AO x3 HEENT: PERRLA, pupils bilaterally equal and reactive Chest: Normal vesicular breath sounds, no added sounds, equal good air entry bilaterally CVS: Elevated JVD, S1S2 irregular, PSM 3/6 at apex radiating to post axillary line, PSM at tricuspid region, S3 gallop Abdomen: Soft, nontender, no organomegaly, bowel sounds present Neuro: No focal deficits, no facial deformity, AO x3, power 5/5 in all limbs Urinary Catheter Management^: Julian: Cath Placed During This Visit: yes Reason for Continuing Indwelling Catheter: Accurate Measurement of Urinary Output in Critically Ill Patients Urinary Catheter Date of Insertion: 05/03/20 Urinary Catheter Time of Insertion: 20:24 Data : 05/07/20 04:12 05/07/20 04:12 A&P Assessment and plan (1) Acute exacerbation of congestive heart failure: Status: Acute Qualifiers: Heart failure type: diastolic Qualified Code(s): I50.33 - Acute on chronic diastolic (congestive) heart failure (2) Elevated d-dimer: Status: Acute (3) Pneumonia: No signs of sepsis at this time. Continue antibiotics. -Noted increased right basilar consolidation Continue ceftriaxone. Patient has already received 3 days of azithromycin will stop. CT scan negative for any consolidation. Status: Acute Qualifiers: Pneumonia type: due to unspecified organism Laterality: right Lung location: lower lobe of lung Qualified Code(s): J18.9 - Pneumonia, unspecified organism (4) A-fib: Rate controlled. Continue telemetry monitoring. Continue with current dose of metoprolol. On confirming with the pharmacy and daughter patient takes Eliquis 5 mg twice daily. We will restart on Eliquis today as there are no plans for thoracocentesis for now. Status: Chronic Qualifiers: Atrial fibrillation type: paroxysmal Qualified Code(s): I48.0 - Paroxysmal atrial fibrillation (5) Pleural effusion: Status: Acute (6) Severe mitral regurgitation: Status: Acute (7) Tricuspid regurgitation: Status: Acute (8) Fall: -Reports heavy sensation in her feet when she attempts to ambulate. This is likely secondary to acute CHF exacerbation -Fall precautions -PT Status: Acute Qualifiers: Encounter type: initial encounter Qualified Code(s): W19.XXXA - Unspecified fall, initial encounter (9) HTN (hypertension): Status: Chronic Qualifiers: Hypertension type: essential hypertension Qualified Code(s): I10 - Essential (primary) hypertension (10) DM type 2 (diabetes mellitus, type 2): HbA1c 7. -Accu-Cheks, ISS, hypoglycemia precautions Status: Chronic Qualifiers: Diabetes mellitus care home insulin use: without care home use Diabetes mellitus complication status: without complication Qualified Code(s): E11.9 - Type 2 diabetes mellitus without complications Additional A&P Information Acute hypoxic respiratory failure/hypoxia: Because of congestive heart failure. Bi-valvular disorder. Echocardiogram done this admission consistent with EF 50% with global LV hypokinesia with severe mitral regurgitation, moderate pulmonary hypertension, severe tricuspid regurgitation. At present patient is on Lasix 60 mg IV twice daily. For now continue the same. Patient overall 4 L negative. Fluid restriction up to 1500 cc. Strict input output charting, daily weights. Oxygen supplementation keeping saturation over 90%. Appreciate cardiology consultation. Because patient has severe mitral regurgitation she might benefit from preload reduction. We will stop amlodipine. We will see if we can introduce Imdur at a lower dose and uptitrate accordingly. Patient had decrease in LV function as compared to her recent echo so we will rule out causes for decreased LV function. Patient does have risk factors for CAD including hypertension, hyperlipidemia. We will plan for a stress test once patient is more euvolemic. Check TSH, lipid panel, tick panel. HbA1c 7 Pleural effusion: Discussed the CAT scan with cable swager recreation attendant. As per Dr. Murphy as patient's pleural effusion is most likely because of congestive heart failure it would be best to avoid thoracocentesis if possible. As patient is im proving and is requiring 2 L oxygen supplementation to maintain a saturation of 95% the best would be to avoid the procedure for now and monitor her as an outpatient. Restart anticoagulation. Elevated d-dimer: CTA negative for pulmonary embolism. Hypertension: Goal blood pressure less than 140/90 mmHg. Stop amlodipine. We will try to see if he can introduce Imdur/ALVARO inhibitor. Acute on chronic anemia: Hemoglobin in July last year 10.8. 9.5 today. Iron deficiency anemia. Also Hemoccult blood positive. For now we will continue to monitor hemoglobin and see how she does. If hemoglobin continues to drop down will involve surgery for possible EGD or colonoscopy. Protonix 40 mg daily. -Morbid obesity: BMI-36 kg/m2 -cardiac consistent carb diet as tolerated -DVT ppx not needed as on AC -Dispo: home -Code status: FULL code Patient's care was discussed in detail with her daughter. She is agreeable to the plan of treatment. Attestations Medical Necessity Statement*: Acute hypoxic respiratory failure, congestive heart failure. Time Spent in Patient Care: Greater than 35 minutes (>than 50% of time spent in counselling and/or direct pt care on unit) . Coding Level of Care Code Acute Welder Railcar Mechanic for [facility] Fwd Diagnoses Acute exacerbation of congestive heart failure I50.33 Heart failure type: diastolic Elevated d-dimer R79.89 Pneumonia J18.9 Pneumonia type: due to unspecified organism Laterality: right Lung location: lower lobe of lung A-fib I48.0 Atrial fibrillation type: paroxysmal Pleural effusion J90 Severe mitral regurgitation I34.0 Tricuspid regurgitation I07.1 Fall W19.XXXA Encounter type: initial encounter HTN (hypertension) I10 Hypertension type: essential hypertension DM type 2 (diabetes mellitus, type 2) E11.9 Diabetes mellitus care home insulin use: without care home use Diabetes mellitus complication status: without complication
--- NOTE | 2020-05-07 13:46 | ECG_ITS ---
[facility] Test Date: 2020-05-07 Pat Name: Kim Mon Department: Room: 107 Gender: Female Air Control/Anti Air Warfare Officer: : 1935 Requested By: Paloma Jaffe Order Number: [id number] Teresa MD: Paloma Jaffe M.D. Measurements Intervals [place] Rate: 99 P: 250 WA: 256 QRS: 11 QRSD: 81 T: 12 QT: 393 QTc: 506 Interpretive Statements SINUS RHYTHM WITH FIRST DEGREE AV BLOCK LOW QRS VOLTAGE IN PRECORDIAL LEADS [QRS DEFLECTION < 1.0 mV IN CHEST LEADS] ANTEROSEPTAL MYOCARDIAL INFARCTION [40+ ms Q WAVE IN V1-V4], OF INDETERMINATE AGE Compared to ECG 05/03/2020 18:27:02 Low QRS voltage now present Myocardial infarct finding still present Electronically Signed On 05-07-2020 22:30:39 CDT by Paloma Jaffe M.D. [email or web address]
[2020-05-07 13:58] LABS: Thyroid Stimulating Hormone 0.01 uIU/mL (0.27-4.20)
[2020-05-07 16:28] LABS: Glucose Point of Care 190 mg/dL (70-110)
[2020-05-07] MEDS: ferrous gluconate 324 mg Tablet PO (17:06)
[2020-05-07] MEDS: apixaban 5 mg Tablet PO (17:06)
[2020-05-07] MEDS: metOLazone 5 MG Tablet 2.5 MG PO (17:07)
[2020-05-07] MEDS: pantoprazole DR 40 mg Tablet PO (17:07)
[2020-05-07 18:48] LABS: Free T4 Free Thyroxine 1.58 ng/dL (0.82-1.77); T3 Free 2.6 PG/ML (2.0-4.4)
[2020-05-07 20:06] LABS: Glucose Point of Care 275 mg/dL (70-110)
[2020-05-07] MEDS: atorvastatin 40 mg Tablet PO (20:11)
[2020-05-08] VITALS (8 sets, daily range): BP systolic 122–138; BP diastolic 60–97; PULSE 84–100; RESP 16–21; TEMP 36.7–36.9; O2SAT 91–96
[2020-05-08] MEDS: cefTRIAXone 1,000 MG in sodium chloride 0.9% (plus) 50 ML 100 MG IV (00:05)
[2020-05-08 04:24] LABS: Basophils # 0.1 10^3/uL (0.0-0.1); Basophils % 1.1 %; Eosinophils # 0.3 10^3/uL (0.0-0.8); Eosinophils % 4.4 %; Hematocrit 28.9 % (37.0-47.0); Lymphocytes # 1.2 10^3/uL (0.8-4.8); Lymphocytes % 17.4 %; Mean Corpuscular HGB Conc 31.1 g/dL (30.0-36.0); Mean Corpuscular Hemoglobin 25.6 pg (28.0-34.0); Mean Corpuscular Volume 82.1 fL (81-99); Monocytes # 0.7 10^3/uL (0.2-0.9); Monocytes % 10.1 %; Neutrophils % 66.6 %; Nucleated Red Blood Cells % 0 %; Platelet Count 367 10^3/cmm (130-400); Red Blood Count 3.52 10^6/uL (4.1-5.3); Red Cell Distribution Width 15.4 % (12.1-15.1); White Blood Count 7.1 10^3/uL (4.0-10.0)
[2020-05-08 05:01] LABS: Alanine Aminotransferase 11 U/L (0-33); Albumin Level 3.3 g/dL (3.5-5.2); Alkaline Phosphatase 86 IU/L (35-105); Anion Gap 15.8 (5-19); Aspartate Amino Transferase 11 U/L (0-32); Blood Urea Nitrogen 41 mg/dL (8-23); Calcium 9.1 mg/dL (8.5-10.5); Carbon Dioxide 25 mmol/L (22-29); Chloride 102 mmol/L (98-107); Chol HDL Ratio 2.04 mg/dL (0.0-4.40); Cholesterol 116 mg/dL (0-200); Globulin 3.1 g/dL (1.3-4.6); Glucose 141 mg/dL (65-115); HDL Cholesterol 57 mg/dL (60-100); LDL Cholesterol Calculated 52 mg/dL (50-129); Osmolality Calculated 288 mOsm/kg (285-295); Potassium 3.8 mmol/L (3.5-5.1); Sodium 139 mmol/L (136-145); Total Bilirubin 0.3 mg/dL (0.15-1.2); Total Protein 6.4 g/dL (6.6-8.7); Triglycerides 33 mg/dL (0-150); VLDL Cholestrol Calculation 7 mg/dL (0-30)
[2020-05-08 06:12] LABS: Glucose Point of Care 138 mg/dL (70-110)
[2020-05-08] MEDS: metOLazone 5 MG Tablet 2.5 MG PO (08:29)
[2020-05-08] MEDS: metoprolol tartrate 25 mg Tablet 12.5 MG PO ×2 (08:30→17:00)
[2020-05-08] MEDS: ferrous gluconate 324 mg Tablet PO ×2 (08:30→17:00)
[2020-05-08] MEDS: FUROsemide 10 mg/mL SDV 10mL 60 MG IVP (08:30)
[2020-05-08] MEDS: pantoprazole DR 40 mg Tablet PO (08:30)
[2020-05-08] MEDS: apixaban 5 mg Tablet PO ×2 (08:30→17:00)
--- NOTE | 2020-05-08 09:35 | P.PN_ITS ---
Subjective Subjective: Interval history: She is requesting to go home. She is still limited in ambulation due to marked edema in legs. she was able to lay down in bed briefly while I was there. Medications: Reviewed: Yes Medication Review Details: Current Medications Acetaminophen (Tylenol) 650 mg PO Q6H PRN PRN Reason: Mild/Mod Pain Or Temp >/= 101 Apixaban (Eliquis) 5 mg PO BID [facility] Last Admin: 05/08/20 08:30 Dose: 5 mg Documented by: Atorvastatin Calcium (Lipitor) 40 mg PO BEDTIME [facility] Last Admin: 05/07/20 20:11 Dose: 40 mg Documented by: Dextrose (D50w) 25 ml IVP ONCE PRN; Protocol PRN Reason: hypoglycemia protocol Dextrose (D50w) 50 ml IVP PRN PRN; Protocol PRN Reason: hypoglycemia protocol Ferrous Gluconate (Ferrous Gluconate) 324 mg PO BIDWM [facility] Last Admin: 05/08/20 08:30 Dose: 324 mg Documented by: Furosemide (Lasix) 60 mg IVP BID [facility] Last Admin: 05/08/20 08:30 Dose: 60 mg Documented by: Glucagon (Glucagen) 1 mg IM ONCE PRN; Protocol PRN Reason: Adult Acute Hypoglycemia Prot. Ceftriaxone Sodium 1,000 mg/ (Sodium Chloride) 50 mls @ 100 mls/hr IV Q24H [facility]; Protocol Last Infusion: 05/08/20 00:38 Dose: Infused Documented by: Dextrose (D5w) 500 mls @ 100 mls/hr IV ONCE PRN; Protocol PRN Reason: Adult Acute Hypoglycemia Prot Insulin Aspart (Novolog) 0 unit SUBCUT WM&BEDTIME [facility]; Protocol Last Admin: 05/08/20 08:20 Dose: Not Given Documented by: Metolazone (Zaroxolyn) 2.5 mg PO DAILY [facility] Last Admin: 05/08/20 08:29 Dose: 2.5 mg Documented by: Metoprolol Tartrate (Lopressor) 12.5 mg PO BID [facility] Last Admin: 05/08/20 08:30 Dose: 12.5 mg Documented by: Nitroglycerin (Nitrostat) 0.4 mg SUBLINGUAL Q5M PRN PRN Reason: CHEST PAIN Ondansetron HCl (Zofran) 4 mg IVP Q6H PRN PRN Reason: NAUSEA AND VOMITING Pantoprazole Sodium (Protonix) 40 mg PO DAILY [facility] Last Admin: 05/08/20 08:30 Dose: 40 mg Documented by: Vitals/I&O/Wt Last Vital Signs Temp 98.4 F 05/08/20 08:00 Pulse 85 05/08/20 08:00 Resp 21 H 05/08/20 08:00 BP 122/60 05/08/20 08:00 Pulse Ox 93 05/08/20 08:00 05/07/20 05/08/20 05/08/20 22:59 06:59 14:59 Intake Total 100 / 820 Output Total 2039 / 2039 600 / 2640 300 / 300 Balance -2040 / -1320 -500 / -1820 -300 / -300 Weight last 48 hrs Weight 154 lb Weight 148 lb Physical Exam Narrative: EXAM NARRATIVE: Const COMMON NORMALS: no acute distress, patient oriented x3 and alert GENERAL APPEARANCE: cooperative, comfortable, well kempt and well hydrated HENMO COMMON NORMALS: normocephalic, atraumatic, hearing grossly normal bilaterally, external ears normal and moist oral mucous membranes HEAD & SCALP: normocephalic and atraumatic FACE & SINUS: normal facial exam; no edema EXTERNAL EAR: Yes external ears normal Eye COMMON NORMALS: Equal, round and reactive pupils present, EOMs intact bilaterally, conjunctivae normal and no scleral icterus GENERAL EYE: appearance normal, both eyes and all related structures ALIGNMENT: Yes alignment normal CONJUNCTIVA: Yes conjunctivae normal SCLERA: sclerae normal PUPIL: Yes Equal, round and reactive pupils present Neck/C-Spine COMMON NORMALS: no lymphadenopathy, supple and Thyroid normal GENERAL: Yes normal visual inspection, Yes trachea midline and Yes JVD THYROID: Thyroid normal CAROTIDS: Yes normal carotid upstroke CERVICAL SPINE: Yes cervical ROM normal Chest COMMONS NORMALS: normal inspection of the chest and normal palpation of entire chest wall CHEST: Yes Symmetrical chest wall rise and No tenderness Resp COMMON NORMALS: clear to auscultation bilaterally EFFORT & INSPECTION: Yes able to speak in complete sentences and No tachypneic AUSCULTATION: clear to auscultation bilaterally, no crackles, rales, no rhonchi, no wheezes, breath sounds absent bilateral (basal (R>L)) and vesicular breath sounds Cardio COMMON NORMALS: regular rate, regular rhythm, S1 normal heart sound present, S2 normal heart sound present and Peripheral pulses 2+ throughout PALPATION: normal PMI RATE: regular rate RHYTHM: regular rhythm HEART SOUNDS: S1 normal heart sound present, S2 normal heart sound present, no gallops and no murmurs BRUITS: no carotid bruits, no femoral bruits and no renal bruits PERIPHERAL PULSES: Peripheral pulses 2+ throughout, radial pulses present, posterior tibial pulses present and dorsalis pedis present GI COMMON NORMALS: Soft to palpation AUSCULTATION: Yes normoactive bowel sounds PALPATION: Yes Soft to palpation, No Tenderness to palpation present (GI), No Guarding due to palpation present (GI) and No Rigid due to palpation Extremity GENERAL: No calf tenderness, No clubbing, No cyanosis, Yes edema (4+ edema bilateral legs) and No pallor Neuro COMMON NORMALS: patient oriented x3, CN's II-XII intact bilaterally and no focal motor deficits SENSORIUM/ORIENTATION: Yes alert Psych COMMON NORMALS: Normal thought process present and speech normal APPEARANCE: Yes well kempt SPEECH: Yes normal speech MOOD & AFFECT: Yes euthymic mood THOUGHT PROCESS: Normal thought process present THOUGHT CONTENT: Yes Normal thought content present Urinary Catheter Management^: Julian: Cath Placed During This Visit: yes Reason for Continuing Indwelling Catheter: Accurate Measurement of Urinary Output in Critically Ill Patients Urinary Catheter Date of Insertion: 05/03/20 Urinary Catheter Time of Insertion: 20:24 Data : 05/08/20 03:20 05/08/20 03:20 Micro: Microbiology 05/05/20 19:30 Wound Culture - Preliminary Toe - #4 Coagulase negativ staphylococc Cumulative I&O 05/03/20 17:00 thru 05/08/20 17:00 Intake Total 4988 Output Total 81943 Balance -6077 A&P Assessment and plan (1) Acute exacerbation of congestive heart failure: ACC/AHA stage C, NYHA class 3-4 symptoms. -Diuresing well on lasix 60 mg IV BID. started on low dose metolazone. -Drop in LV function with mild diffuse hypokinesis. -Multiple CAD risk factors including advanced age, DM-2, dyslipidemia, HTN. She would need further work up (given contrast allergy would start with stress testing once euvolemic.) -continue I/O charting, daily weight. -change to lasix 80 mg BID on discharge with low dose metolazone. start on potassium 20 meq BID. -f/u in 1 week with me in [facility], f/u labs in 1 week. Status: Acute Qualifiers: Heart failure type: diastolic Qualified Code(s): I50.33 - Acute on chronic diastolic (congestive) heart failure (2) Severe mitral regurgitation: Primary vs secondary. -Once euvolemic, FELICIANO would help understand the underlying etiology. Status: Acute (3) A-fib: -ON DOAC and metoprolol. Status: Chronic Qualifiers: Atrial fibrillation type: paroxysmal Qualified Code(s): I48.0 - Paroxysmal atrial fibrillation (4) DM type 2 (diabetes mellitus, type 2): Status: Chronic Qualifiers: Diabetes mellitus oysterman insulin use: without oysterman use Diabetes mellitus complication status: without complication Qualified Code(s): E11.9 - Type 2 diabetes mellitus without complications (5) HTN (hypertension): Status: Chronic Qualifiers: Hypertension type: essential hypertension Qualified Code(s): I10 - Essential (primary) hypertension Additional A&P Information Bilateral pleural effusion (R>L): may need thoracentesis, f/u CXR in 1 week Anasarca Severe TR ? Iron deficiency anemia Dyslipidemia Thank you for allowing me to participate in patient's care. Please feel free to call with questions or concerns. Attestations Medical Necessity Statement*: Stable to be discharged home from cardiac standpoint. Coding Level of Care Code Acute Deputy Director Of Nursing for [place] Fwd Diagnoses Acute exacerbation of congestive heart failure I50.33 Heart failure type: diastolic Severe mitral regurgitation I34.0 A-fib I48.0 Atrial fibrillation type: paroxysmal DM type 2 (diabetes mellitus, type 2) E11.9 Diabetes mellitus intermediate insulin use: without oysterman use Diabetes mellitus complication status: without complication HTN (hypertension) I10 Hypertension type: essential hypertension
--- NOTE | 2020-05-08 10:25 | PM.PN ---
Subjective Subjective: Interval history: No acute events overnight. She states she is feeling better. She slept in chair overnight. On examination saturating 94% on 1 L nasal cannula. Did walk with physical therapy well in the morning today down the [place] without having any difficulty in breathing. No chest pain, N/V, headache, dizziness, abdominal pain. Vitals/I&O/Wt Last Vital Signs Temp 98.4 F 05/08/20 08:00 Pulse 85 05/08/20 08:00 Resp 21 H 05/08/20 08:00 BP 122/60 05/08/20 08:00 Pulse Ox 93 05/08/20 08:00 05/07/20 05/08/20 05/08/20 22:59 06:59 14:59 Intake Total 100 / 820 Output Total 2040 / 2040 600 / 2640 300 / 300 Balance -2040 / -1320 -500 / -1820 -300 / -300 Weight last 48 hrs Weight 69.853 kg Weight 67.132 kg Physical Exam Narrative: EXAM NARRATIVE: General: No acute distress, AO x3 HEENT: PERRLA, pupils bilaterally equal and reactive Chest: Normal vesicular breath sounds, no added sounds, equal good air entry bilaterally CVS: Elevated JVD, S1S2 irregular, PSM 3/6 at apex radiating to post axillary line, PSM at tricuspid region, S3 gallop Abdomen: Soft, nontender, no organomegaly, bowel sounds present Neuro: No focal deficits, no facial deformity, AO x3, power 5/5 in all limbs Urinary Catheter Management^: Julian: Cath Placed During This Visit: yes, but has since been removed by the nurse Reason for Continuing Indwelling Catheter: Decision to DC Catheter Urinary Catheter Date of Insertion: 05/03/20 Urinary Catheter Time of Insertion: 20:24 Date Urinary Catheter Removed: 05/08/20 Time Urinary Catheter Discontinued: 08:00 Data : 05/08/20 03:20 05/08/20 03:20 Micro: Microbiology 05/05/20 19:30 Wound Culture - Preliminary Toe - #4 Coagulase negativ staphylococc A&P Assessment and plan (1) Acute exacerbation of congestive heart failure: Status: Acute Qualifiers: Heart failure type: diastolic Qualified Code(s): I50.33 - Acute on chronic diastolic (congestive) heart failure (2) Elevated d-dimer: Status: Acute (3) Pneumonia: No signs of sepsis at this time. Continue antibiotics. -Noted increased right basilar consolidation Continue ceftriaxone. Patient has already received 3 days of azithromycin will stop. CT scan negative for any consolidation. Status: Acute Qualifiers: Pneumonia type: due to unspecified organism Laterality: right Lung location: lower lobe of lung Qualified Code(s): J18.9 - Pneumonia, unspecified organism (4) A-fib: Rate controlled. Continue telemetry monitoring. Continue with current dose of metoprolol. On confirming with the pharmacy and daughter patient takes Eliquis 5 mg twice daily. We will restart on Eliquis today as there are no plans for thoracocentesis for now. Status: Chronic Qualifiers: Atrial fibrillation type: paroxysmal Qualified Code(s): I48.0 - Paroxysmal atrial fibrillation (5) Pleural effusion: Status: Acute (6) Severe mitral regurgitation: Status: Acute (7) Tricuspid regurgitation: Status: Acute (8) Fall: -Reports heavy sensation in her feet when she attempts to ambulate. This is likely secondary to acute CHF exacerbation -Fall precautions -PT Status: Acute Qualifiers: Encounter type: initial encounter Qualified Code(s): W19.XXXA - Unspecified fall, initial encounter (9) HTN (hypertension): Status: Chronic Qualifiers: Hypertension type: essential hypertension Qualified Code(s): I10 - Essential (primary) hypertension (10) DM type 2 (diabetes mellitus, type 2): HbA1c 7. -Accu-Cheks, ISS, hypoglycemia precautions Status: Chronic Qualifiers: Diabetes mellitus exterminator termite insulin use: without skilled nursing use Diabetes mellitus complication status: without complication Qualified Code(s): E11.9 - Type 2 diabetes mellitus without complications Additional A&P Information Acute hypoxic respiratory failure/hypoxia: Because of congestive heart failure. Bi-valvular disorder. Echocardiogram done this admission consistent with EF 50% with global LV hypokinesia with severe mitral regurgitation, moderate pulmonary hypertension, severe tricuspid regurgitation. At present patient is on Lasix 60 mg IV twice daily. For now continue the same. Patient overall 4 L negative. Fluid restriction up to 1500 cc. Strict input output charting, daily weights. Oxygen supplementation keeping saturation over 90%. Appreciate cardiology consultation. Because patient has severe mitral regurgitation she might benefit from preload reduction. We will stop amlodipine. We will see if we can introduce Imdur at a lower dose and uptitrate accordingly. Patient had decrease in LV function as compared to her recent echo so we will rule out causes for decreased LV function. Patient does have risk factors for CAD including hypertension, hyperlipidemia. We will plan for a stress test once patient is more euvolemic. Check TSH, lipid panel, tick panel. HbA1c 7 Pleural effusion: Discussed the CAT scan with carpenter labor supervisor converter operator. As per Dr. Murphy as patient's pleural effusion is most likely because of congestive heart failure it would be best to avoid thoracocentesis if possible. As patient is improving and is requiring 2 L oxygen supplementation to maintain a saturation of 95% the best would be to avoid the procedure for now and monitor her as an outpatient. Restart anticoagulation. Elevated d-dimer: CTA negative for pulmonary embolism. Hypertension: Goal blood pressure less than 140/90 mmHg. Stop amlodipine. We will try to see if he can introduce Imdur/ALVARO inhibitor. Acute on chronic anemia: Hemoglobin in July last year 10.8. 9.5 today. Iron deficiency anemia. Also Hemoccult blood positive. For now we will continue to monitor hemoglobin and see how she does. If hemoglobin continues to drop down will involve surgery for possible EGD or colonoscopy. Protonix 40 mg daily. -Morbid obesity: BMI-36 kg/m2 -cardiac consistent carb diet as tolerated -DVT ppx not needed as on AC -Dispo: home -Code status: FULL code Patient's care was discussed in detail with her daughter. She is agreeable to the plan of treatment. Coding Level of Care Code Acute Cotton Bag Sewer for [facility] Fwd Diagnoses Acute exacerbation of congestive heart failure I50.33 Heart failure type: diastolic Elevated d-dimer R79.89 Pneumonia J18.9 Pneumonia type: due to unspecified organism Laterality: right Lung location: lower lobe of lung A-fib I48.0 Atrial fibrillation type: paroxysmal Pleural effusion J90 Severe mitral regurgitation I34.0 Tricuspid regurgitation I07.1 Fall W19.XXXA Encounter type: initial encounter HTN (hypertension) I10 Hypertension type: essential hypertension DM type 2 (diabetes mellitus, type 2) E11.9 Diabetes mellitus skilled nursing insulin use: without skilled nursing use Diabetes mellitus complication status: without complication
[2020-05-08 11:24] LABS: Glucose Point of Care 269 mg/dL (70-110)
[2020-05-08] MEDS: potassium chloride ER 10 mEq Tablet 20 MEQ PO ×2 (11:47→17:00)
--- NOTE | 2020-05-08 12:37 | P.DS_ITS ---
Discharge Providers Date of Admission: 05/03/20 23:05 Date of Discharge: May 08, 2020 Attending Provider at Admission: Danielle Malave MD Attending Provider at Discharge: Warner Bautista MD Consults: Cardiology: Dr. Jaffe Primary Care Provider: Mini Little DO Diagnoses at Discharge Discharge Diagnosis (1) Acute exacerbation of congestive heart failure: Status: Acute Qualifiers: Heart failure type: diastolic Qualified Code(s): I50.33 - Acute on chronic diastolic (congestive) heart failure (2) Elevated d-dimer: Status: Acute (3) Pneumonia: Status: Acute Qualifiers: Pneumonia type: due to unspecified organism Laterality: right Lung location: lower lobe of lung Qualified Code(s): J18.9 - Pneumonia, unspecified organism (4) A-fib: Status: Chronic Qualifiers: Atrial fibrillation type: paroxysmal Qualified Code(s): I48.0 - Paroxysmal atrial fibrillation (5) Pleural effusion: Status: Acute (6) Severe mitral regurgitation: Status: Acute (7) Tricuspid regurgitation: Status: Acute (8) Fall: Status: Acute Qualifiers: Encounter type: initial encounter Qualified Code(s): W19.XXXA - Unspecified fall, initial encounter (9) HTN (hypertension): Status: Chronic Qualifiers: Hypertension type: essential hypertension Qualified Code(s): I10 - Essential (primary) hypertension (10) DM type 2 (diabetes mellitus, type 2): Status: Chronic Qualifiers: Diabetes mellitus extermination inspector insulin use: without residential use Diabetes mellitus complication status: without complication Qualified Code(s): E11.9 - Type 2 diabetes mellitus without complications (11) Subclinical hyperthyroidism: Status: Acute Reason for Visit Reason for Visit: sob Hospital Course Discharge Summary: Kim Mon is a 84 year old female with PMHx of hypertension, 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 h/o iodine allergy, shrimp/ shellfish allergy (possible angioedema/anaphylaxis per daughter) and paroxysmal atrial fibrillation on Eliquis presented from home due to worsening shortness of breath, generalized swelling in bilateral legs for the past 4 to 6 weeks. She also had orthopnea, abdominal wall distention, and increasing shortness of breath even with minimal exertion. No sick contacts, URI/ UTI like symptoms. She is not really good with outpatient follow ups and her daughter Leighann had a hard time convincing her to go to PCP on Wednesday. She saw DR. Little and was sent to the ER for further follow up. Her initial hemoglobin of 10.5, normal electrolytes and creatinine, BUN of 37, rapid COVID screen is negative, d-dimer is 2.73. venous duplex was negative for DVT. Chest x-ray shows a right basilar consolidation, BNP is 5491. EKG on arrival showed sinus rhythm with first degree AV block. Echo showed drop in LV function, severe MR and TR. She was admitted to the cardiac stepdown unit and started on aggressive diuresis with IV Lasix. CTA PE protocol chest was done which is negative for pulmonary embolism it was consistent with bilateral asymmetric pleural effusions, larger on right and moderate on the left. She responded well to the diuretic treatment and was on room air for last 24 to 36 hours both on rest and on exertion. Because of large quantity of pleural fluid CT scan was discussed with pulmo nology regarding thoracocentesis while her anticoagulation was withheld for 48 hours. As per the electronic installer as patient pleural effusion is most likely because of congestive heart failure they want to treated conservatively for now and monitor her as an outpatient after aggressive diuresis. Cardiology was consulted for severe MR and severe TR. Patient's echocardiogram shows drop in LV function as compared to an echocardiogram done in July 2019. Patient does have risk factors for CAD including hypertension and hyperlipidemia and she would need further work-up as an outpatient once she is more euvolemic. To rule out other causes of drop in LV TSH was checked which was less than 0.01 though feeds T3 and T4 within normal limits. Case was discussed with endocrine and they recommended for her to be treated for subclinical hyperthyroidism with methimazole 5 mg daily with advice to follow up with endocrine in next 2 weeks for further work up. HbA1c recently checked was 7. Lipid panel was within normal limits. Iron panel was checked which is consistent with iron deficiency anemia so she is been started on oral iron supplementation. Patient's hemoglobin on admission was 10.5 but remained stable at 9-9.5 during hospitalization. Patient stool for occult blood was positive which could be because of iron supplementation. She is been discharged in medically stable condition with advised to follow-up with cardiology as an outpatient within 1 week with CBC and CMP. Diuretic regimen will be adjusted at that point. She will also be evaluated for possible thoracocentesis as an outpatient depending on her diuretic response. Physical Exam Narrative: EXAM NARRATIVE: General: No acute distress, AO x3 HEENT: PERRLA, pupils bilaterally equal and reactive Chest: Normal vesicular breath sounds, no added sounds, equal good air entry bilaterally CVS: Elevated JVD, S1S2 irregular, PSM 3/6 at apex radiating to post axillary line, PSM at tricuspid region, S3 gallop Abdomen: Soft, nontender, no organomegaly, bowel sounds present Neuro: No focal deficits, no facial deformity, AO x3, power 5/5 in all limbs Urinary Catheter Management^: Julian: Cath Placed During This Visit: yes, but has since been removed by the nurse Reason for Continuing Indwelling Catheter: Decision to DC Catheter Urinary Catheter Date of Insertion: 05/03/20 Urinary Catheter Time of Insertion: 20:24 Date Urinary Catheter Removed: 05/08/20 Time Urinary Catheter Discontinued: 08:00 Discharge Data Data Completed and Pending: Completed Studies During Hospitalization Category Date Time Status CT angio chest PE protcl [id number] Stat Cat Scan 05/05/20 09:00 Completed XR chest 1V markos ble [id number] Stat Exams 05/03/20 17:58 Completed CV echo complete* [id number] Routine Ultrasound 05/05/20 00:12 [place] [id number] Urgent Ultrasound 05/03/20 18:00 Completed Pending at discharge Category Date Time Status Adrenocorticotrop ic Hormone Routine Lab 05/07/20 04:12 Received Blood Culture Sta t Lab 05/03/20 19:34 Results Sputum Culture an d Gram Stain Stat Lab 05/03/20 20:22 Ordered Wound Culture Rou azar Lab 05/05/20 19:30 Results Labs from last 24 hours 05/08/20 05/08/20 05/08/20 11:16 06:03 03:20 WBC RBC Hgb Hct MCV MCH MCHC RDW Plt Count MPV Neut % (Auto) Lymph % (Auto) [place] % (Auto) Eos % (Auto) Baso % (Auto) Neut # (Auto) Lymph # (Auto) [place] # (Auto) Eos # (Auto) Baso # (Auto) Nucleated RBC % (a uto) Nucleated RBCs # Sodium Potassium Chloride Carbon Dioxide Anion Gap BUN Creatinine GFR Calculation Glucose POC Glucose 269 138 Calculated Osmolal ity Calcium Magnesium 2.0 Total Bilirubin AST ALT Alkaline Phosphata se Total Protein Albumin Globulin Triglycerides Cholesterol LDL Cholesterol, C alc Total VLDL Cholest kojo HDL Cholesterol Cholesterol/HDL Ra abhi TSH Free T4 Free T3 ACTH 05/08/20 05/08/20 05/07/20 03:20 03:20 20:02 WBC 7.1 RBC 3.52 L Hgb 9.0 L Hct 28.9 L MCV 82.1 MCH 25.6 L MCHC 31.1 RDW 15.4 H Plt Count 367 MPV 9.0 Neut % (Auto) 66.6 Lymph % (Auto) 17.4 [place] % (Auto) 10.1 Eos % (Auto) 4.4 Baso % (Auto) 1.1 Neut # (Auto) 4.70 Lymph # (Auto) 1.2 [place] # (Auto) 0.7 Eos # (Auto) 0.3 Baso # (Auto) 0.1 Nucleated RBC % (a uto) 0 Nucleated RBCs # 0.0 Sodium 139 Potassium 3.8 Chloride 102 Carbon Dioxide 25 Anion Gap 15.8 BUN 41 H Creatinine 1.0 H GFR Calculation Not Reportable Glucose 141 H POC Glucose 275 Calculated Osmolal ity 288 Calcium 9.1 Magnesium Total Bilirubin 0.3 AST 11 ALT 11 Alkaline Phosphata se 86 Total Protein 6.4 L Albumin 3.3 L Globulin 3.1 Triglycerides 33 Cholesterol 116 LDL Cholesterol, C alc 52 Total VLDL Cholest kojo 7 HDL Cholesterol 57 L Cholesterol/HDL Ra abhi 2.04 TSH Free T4 Free T3 ACTH 05/07/20 05/07/20 05/07/20 17:43 16:22 04:12 WBC RBC Hgb Hct MCV MCH MCHC RDW Plt Count MPV Neut % (Auto) Lymph % (Auto) [place] % (Auto) Eos % (Auto) Baso % (Auto) Neut # (Auto) Lymph # (Auto) [place] # (Auto) Eos # (Auto) Baso # (Auto) Nucleated RBC % (a uto) Nucleated RBCs # Sodium Potassium Chloride Carbon Dioxide Anion Gap BUN Creatinine GFR Calculation Glucose POC Glucose 190 Calculated Osmolal ity Calcium Magnesium Total Bilirubin AST ALT Alkaline Phosphata se Total Protein Albumin Globulin Triglycerides Cholesterol LDL Cholesterol, C alc Total VLDL Cholest kojo HDL Cholesterol Cholesterol/HDL Ra abhi TSH Free T4 1.58 Free T3 2.6 ACTH Pending 05/07/20 04:12 WBC RBC Hgb Hct MCV MCH MCHC RDW Plt Count MPV Neut % (Auto) Lymph % (Auto) [place] % (Auto) Eos % (Auto) Baso % (Auto) Neut # (Auto) Lymph # (Auto) [place] # (Auto) Eos # (Auto) Baso # (Auto) Nucleated RBC % (a uto) Nucleated RBCs # Sodium Potassium Chloride Carbon Dioxide Anion Gap BUN Creatinine GFR Calculation Glucose POC Glucose Calculated Osmolal ity Calcium Magnesium Total Bilirubin AST ALT Alkaline Phosphata se Total Protein Albumin Globulin Triglycerides Cholesterol LDL Cholesterol, C alc Total VLDL Cholest kojo HDL Cholesterol Cholesterol/HDL Ra abhi TSH 0.01 L Free T4 Free T3 ACTH Addt'l Data from Hospital Stay: CTA chest CT Scan Report Signed Patient: Olivia Mon #: [id number] : 1936Acct#:[id number] Age/Sex: 84 / FADM Date: 05/03/20 Loc: [facility]/Bed: [facility] Attending Dr: Vince Encinas MD Ordering Provider/Ordering MD: Kavitha Pressley DO Date of Service: 05/05/20 Procedure(s): CT angio chest PE protcl [id number] Accession Number(s): [id number] Report Number: [id number] PROCEDURE INFORMATION: Exam: CT Angiography Chest With Contrast Exam date and time: 05/05/2020 10:06 AM Age: 84 years old Clinical indication: Dyspnea TECHNIQUE: Imaging protocol: Computed tomographic angiography of the chest with intravenous contrast. 3D rendering (Not supervised by radiologist): MIP and/or 3D reconstructed images were created by the technologist. Radiation optimization: All CT scans at this facility use at least one of these dose optimization techniques: automated exposure control; mA and/or kV adjustment per patient size (includes targeted exams where dose is matched to clinical indication); or iterative reconstruction. Contrast material: OMNIPAQUE 350; Contrast volume: 95 ml; Contrast route: INTRAVENOUS (IV); COMPARISON: [facility] [id number] 08/18/2019 12:50 PM RADIATION DOSE METRICS: Total DLP (mGy-cm): 497.53 FINDINGS: Pulmonary arteries: No sign of pulmonary embolism. Aorta: The thoracic aorta is atherosclerotic. No aneurysm or displaced intimal calcifications. 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 Lungs: There is compressive atelectasis in both lower lobes, worse on the right, as well as the right middle lobe. Pleural space: There is a large right pleural effusion, and a moderate size left pleural effusion. No pneumothorax. Heart: The cardiac silhouette is not enlarged. No pericardial effusion. There is coronary artery disease. Lymph nodes: No pathologically enlarged lymph nodes. Bones/joints: Multilevel disc degeneration in the thoracic spine. There is diffuse idiopathic skeletal hyperostosis. Soft tissues: There is bilateral diffuse subcutaneous body wall edema. CT/CT angio chest PE protcl [id number] IMPRESSION: 1. No sign of pulmonary embolism. 2. Bilateral, asymmetric pleural effusions and compressive atelectasis. ECHO CONCLUSIONS 1-Normal left ventricular cavity size. Mildly increased left ventricular cavity size. Mildly decreased left ventricular systolic function. Global left ventricular hypokinesis. Left ventricular ejection fraction is estimated at 50 %. Due to foreshortening of left ventricle cavity estimation of ejection fraction may not be accurate. In the presence of atrial fibrillation diastolic function cannot be assessed accurately. There appeared to be possible pleural effusion noted. 2-The right ventricle is normal in size and function. Moderate pulmonary hypertension, RVSP 48.4 mmHg. 3-Severe aortic valve calcification. No aortic valve stenosis. Mild aortic valve regurgitation. 4-Moderately thickened mitral valve. No mitral valve stenosis. Severe mitral valve regurgitation. 5-Severe tricuspid valve regurgitation. 6-Moderate biatrial enlargment. 7-There is no pericardial effusion. 8-Right atrial pressure is around 10 mm of mercury. 9-When compared to the prior echocardiogram dated 08/19/19, there is worsenig of mitral and tricuspid valve regurgitation from mild to severe now, there is also noted to have pleural effusion, Ejection fraction may have mildy reduced to 50%. Vitals: Last Vital Signs Temp 98.4 F 05/08/20 08:00 Pulse 85 05/08/20 08:00 Resp 21 H 05/08/20 08:00 BP 122/60 05/08/20 08:00 Pulse Ox 93 05/08/20 08:00 Discharge Plan Discharge Patient Disposition: Home Condition: Stable Prescriptions: New furosemide 40 mg Tablet 80 mg PO BID@ Qty: 60 RF: 0 metolazone 5 mg Tablet 2.5 mg PO DAILY Qty: 30 RF: 0 potassium chloride 10 mEq Tablet Extended Release 20 meq PO BID Qty: 15 RF: 0 pantoprazole 40 mg Tablet,Delayed Release (Dr/Ec) 40 mg PO DAILY Qty: 30 RF: 0 ferrous gluconate 324 mg (37.5 mg iron) Tablet 324 mg PO BIDWM Qty: 60 RF: 0 Eliquis 5 mg Tablet 5 mg PO BID Qty: 30 RF: 0 methimazole 5 mg tablet 5 mg PO DAILY Qty: 30 RF: 0 Continued atorvastatin 40 mg Tablet 40 mg PO BEDTIME Qty: 30 RF: 0 metoprolol tartrate 25 mg Tablet 12.5 mg PO BID Qty: 30 RF: 0 Eliquis 5 mg Tablet 5 mg PO DAILY RF: 0 Discontinued amlodipine 10 mg Tablet 10 mg PO DAILY Qty: 30 RF: 0 furosemide 20 mg Tablet 20 mg PO BREAKFAST Qty: 30 RF: 0 Discharge Orders: Discharge Order (Routine); Ordered 05/08/20 Ordered By: Warner Bautista Referrals: Gianni George MD [Physician] - 2 weeks Mini Little DO [Primary Care Provider] - 2 weeks Paloma Jaffe MD [Physician] - 4-7 days Discharge Diet: Cardiac and Low Salt Discharge Activity: Resume usual activity Activity Restrictions/Additional Instructions: Please maintain fluid restriction up to 1500 cc/day. Please follow-up with cardiology onset appointment with repeat CBC and CMP. Please follow-up with endocrinology on the set appointment for further work-up of subclinical hyperthyroidism. Discharge Attestations Time Spent in Discharge Care*: greater than 30 min Specific Discharge Activities: Specific discharge activities: educating patient, discussing with pcp/other providers, discussing with field nurse case manager/social workers/dc planners, documenting/other paperwork and evaluating patient/reviewing data Status at Discharge: Cognitive status at discharge: cognitively intact , Behavioral status at discharge: cooperative , Functional status at discharge: independent ambulation Overall status at discharge: patient is progressing back to baseline Quality Metrics Clinical Quality Measures During this hospital stay, did patient experience: None Coding Level of Care Code Acute 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[place] [employer] Diagnoses Acute exacerbation of congestive heart failure I50.33 Heart failure type: diastolic Elevated d-dimer R79.89 Pneumonia J18.9 Pneumonia type: due to unspecified organism Laterality: right Lung location: lower lobe of lung A-fib I48.0 Atrial fibrillation type: paroxysmal Pleural effusion J90 Severe mitral regurgitation I34.0 Tricuspid regurgitation I07.1 Fall W19.XXXA Encounter type: initial encounter HTN (hypertension) I10 Hypertension type: essential hypertension DM type 2 (diabetes mellitus, type 2) E11.9 Diabetes mellitus residential insulin use: without extermination inspector use Diabetes mellitus complication status: without complication Subclinical hyperthyroidism E05.90
--- NOTE | 2020-05-08 15:34 | PC.SOCIAL ---
IMM completed 05/08/2020 @ 1532. Copy of rights given to pt.
[2020-05-08 16:29] LABS: Glucose Point of Care 149 mg/dL (70-110)
[2020-05-08] MEDS: FUROsemide 40 mg Tablet 80 MG PO (17:00)
[2020-05-10 05:27] LABS: Adrenocorticotropic Hormone 16 pg/mL (6-50)
== END 2020-05-08 17:15 | disposition home or self-care (01) | DRG 291 ==
LOC: ER 23:26 → CSU 23:57
PROVIDERS: Family Medicine; Internal Medicine; Internal Medicine Cardiovascular Disease; Admitting Provider Family Medicine; Emergency Provider Emergency Medicine; PCP Family Medicine; Visit Provider Student in an Organized Health Care Education/Training Program
DX: I11.0 Hypertensive heart disease with heart failure (principal); J18.9 Pneumonia, unspecified organism; J96.01 Acute respiratory failure with hypoxia; I50.33 Acute on chronic diastolic (congestive) heart failure; I07.1 Rheumatic tricuspid insufficiency; I48.0 Paroxysmal atrial fibrillation; I34.0 Nonrheumatic mitral (valve) insufficiency; E11.9 Type 2 diabetes mellitus without complications; E02 Subclinical iodine-deficiency hypothyroidism; Z79.4 Long term (current) use of insulin; Z79.01 Long term (current) use of anticoagulants; Z20.828 Contact with and (suspected) exposure to other viral communicable diseases; E66.01 Morbid (severe) obesity due to excess calories; Z68.31 Body mass index [BMI] 31.0-31.9, adult; Z91.81 History of falling; E78.5 Hyperlipidemia, unspecified; D64.9 Anemia, unspecified
CPT/HCPCS: 12345; 36415; 36416; 36600; 51702; 71045; 71275; 80048; 80053; 80061; 81001; 82024; 82274; 82550; 82728; 82803; 82962; 83540; 83550; 83605; 83615; 83735; 83880; 84145; 84439; 84443; 84481; 85025; 85378; 85384; 85610; 85730; 86140; 87040; 87070; 87086; 87426; 93005; 93306; 93970; 94760; 96372; 96375; 97116; 97161; 99284; J0456; J0696; J1644; J1815; J1940; J7050; Q9967

== ENCOUNTER → 2020-05-15 16:43 | Outpatient (BNVA) | payer SELFPAY | PROVIDERS: PCP Family Medicine; Visit Provider Internal Medicine | DX: J90 Pleural effusion, not elsewhere classified (principal); I34.0 Nonrheumatic mitral (valve) insufficiency; I50.30 Unspecified diastolic (congestive) heart failure; I11.0 Hypertensive heart disease with heart failure | CPT/HCPCS: 80048; 83880 ==

== ENCOUNTER 2022-05-08 01:47 | Inpatient (IN) | payer MEDICARE, SELFPAY ==
--- NOTE | 2022-05-08 02:15 | W.ED.GENADLT ---
HPI - General Adult General: Chief complaint: ER Hold Stated complaint: Legs,Stomach, swollen Time Seen by Provider: 05/08/22 02:15 History of Present Illness: Ms. Mon is an 86-year-old lady with significant past medical history of hypertension, hyperlipidemia, paroxysmal A. fib, valvular heart disease who presents to the emergency department due to concern over volume overload. She reports gradually worsening symptoms over the past number of months however they have become severe over the past few weeks and even worse the past few days. She endorses abdominal swelling and fullness associated with lower extremity swelling. She endorses dyspnea worsened with exertion and orthopnea. She has talked to her primary care provider and has had medication adjustments including increase to Bumex 2 mg twice daily which she has been taking for at least 1 week but has not noticed improvement. She estimates 30 pound weight gain over the course of 1 month. Intensity symptoms is moderate to severe. Worse with exertion and positional. Marked decreased exertional tolerance. No other specific changes in health, exacerbating, or alleviating factors identified. Onset (ago): month(s) Location: abdomen and lower extremity Severity: severe Quality: other Exacerbating factors: movement and other Associated symptoms: Reports dyspnea, short of breath and other Treatments prior to arrival: other Review of Systems General: Reports: 10 or more systems reviewed and unremarkable except in HPI and below Resp: Reports: dyspnea PFSH ED PFSH: Medical History (HFpEF) heart failure with preserved ejection fraction A-fib Cerebellar artery occlusion or stenosis Cholelithiasis DM type 2 (diabetes mellitus, type 2) Hip pain HTN (hypertension) Thyroid goiter Tricuspid valve disorder Surgical History No pertinent past surgical history Family History Mother Cancer Father CAD (coronary artery disease) Sister Diabetes Social History Smoking and tobacco status: never smoked Second hand smoke exposure: Yes Alcohol intake: never Household members: significant other Physical Exam Const: COMMON NORMALS: alert GENERAL APPEARANCE: cooperative and well developed HENMT: COMMON NORMALS: normocephalic and atraumatic HEAD & SCALP: normocephalic and atraumatic Eye: COMMON NORMALS: conjunctivae normal CONJUNCTIVA: Yes conjunctivae normal SCLERA: sclerae normal Neck/C-Spine: COMMON NORMALS: supple GENERAL: Yes trachea midline Resp: EFFORT & INSPECTION: Yes able to speak in complete sentences AUSCULTATION: rales bilateral at the base and diminished lung sounds Cardio: COMMON NORMALS: regular rate and regular rhythm RATE: regular rate RHYTHM: regular rhythm GI: COMMON NORMALS: Soft to palpation PALPATION: Yes Soft to palpation and No Tenderness to palpation present (GI) Extremity: GENERAL: Yes normal exam except as noted and Yes edema Neuro: COMMON NORMALS: moves all extremities SENSORIUM/ORIENTATION: Yes alert and No Orientation impaired Psych: COMMON NORMALS: mental status grossly normal and Normal thought process present THOUGHT PROCESS: Normal thought process present Course ED course: - Patient was seen and evaluated by me at bedside - Patient placed on cardiac monitors, IV access obtained - Initial evaluation notable for exam as above. Evidence of volume overload though no new oxygen requirement at this time. - Labs and xrays personally interpreted by me -EKG shows sinus rhythm, no STEMI. - Labs notable for no leukocytosis, macrocytic anemia which is mild. Creatinine is elevated above baseline. Delta troponin negative. BNP elevated. TSH low with mildly low free T4. No UTI. - Imaging notable for bibasilar edema, no lobar consolidation or pneumothorax. - Upon serial reexamination after treatment the patient was similar - Based on patient history, evaluation, and testing as interpreted the most likely cause of the patient's condition is acute on chronic heart failure that has failed outpatient management - The results of ED evaluation were discussed with the patient including plan for admission due to requirement for level of care not available if discharged to prevent significant worsening/deterioration. - Admitting service was contacted and Dr Stevens with the hospitalist service agreed to admit the patient - Patient was admitted without further deterioration or significant events. Note: Click bubbles or prepopulated colón in note writing are used for assistance with data collection and billing and are inherently more limited than narrative and other text portions of this note. Please use narrative for additional clinical history and defer to narrative/free test for any case of contradictory information. If information appears in only free text or click bubble it should be considered present or absent as reported. Please contact note typewriter aligner for clarifications of clinical information or contradictory information. MDM is a brief summary, contradictory or erroneous seeming information should be clarified and full note should be reviewed. Vital Signs: Vital signs: Vital Signs Temperature 98.2 F 05/08/22 16:00 Pulse Rate 79 05/08/22 16:00 Respiratory Rate 18 05/08/22 16:00 Blood Pressure 125/77 05/08/22 16:00 Pulse Oximetry 98 05/08/22 16:00 Oxygen Delivery Me thod 05/08/22 15:31 MDM - General Adult Medical Decision Making 86-year-old lady presenting to the ER for concern over increased fluid and decreased exertional tolerance. Admitted for further management of acute on chronic heart failure. Medical Records I reviewed the patient's medical records. Lab Data I reviewed the patient's lab results. : 05/08/22 03:05 05/08/22 03:05 Radiology Impressions Chest X-Ray 05/08/22 19:23 IMPRESSION: 1. Right mainstem bronchus endotracheal intubation. Tube retraction of about 5 cm recommended. 2. Development of diffuse ground-glass airspace opacities likely representing ARDS. Laboratory Results WBC 8.9 10^3/uL (4.0-10.0) 05/08/22 03:05 RBC 4.13 10^6/uL (4.1-5.3) 05/08/22 03:05 Hgb 10.1 g/dL (11.5-15.3) L 05/08/22 03:05 Hct 33.0 % (37.0-47.0) L 05/08/22 03:05 MCV 79.9 fl (81-99) L 05/08/22 03:05 MCH 24.5 pg (28.0-34.0) L 05/08/22 03:05 MCHC 30.6 g/dL (30.0-36.0) 05/08/22 03:05 RDW 20.0 % (12.1-15.1) H 05/08/22 03:05 Plt Count 366 10^3/cmm (130-400) 05/08/22 03:05 MPV 9.2 fL (7.4-10.4) 05/08/22 03:05 Neut % (Auto) 58.7 % 05/08/22 03:05 Lymph % (Auto) 20.8 % 05/08/22 03:05 [place] % (Auto) 12.5 % 05/08/22 03:05 Eos % (Auto) 6.1 % 05/08/22 03:05 Baso % (Auto) 1.7 % 05/08/22 03:05 Neut # (Auto) 5.21 10^3/uL (1.8-7.7) 05/08/22 03:05 Lymph # (Auto) 1.9 10^3/uL (0.8-4.8) 05/08/22 03:05 [place] # (Auto) 1.1 10^3/uL (0.2-0.9) H 05/08/22 03:05 Eos # (Auto) 0.5 10^3/uL (0.0-0.8) 05/08/22 03:05 Baso # (Auto) 0.2 10^3/uL (0.0-0.1) H 05/08/22 03:05 Nucleated RBC % (auto) 0 % 05/08/22 03:05 Nucleated RBCs # 0.0 /100WBC 05/08/22 03:05 Sodium 137 mmol/L (136-145) 05/08/22 03:05 Potassium 4.8 mmol/L (3.5-5.1) 05/08/22 03:05 Chloride 101 mmol/L (98-107) 05/08/22 03:05 Carbon Dioxide 22 mmol/L (22-29) 05/08/22 03:05 Anion Gap 18.8 (5-19) 05/08/22 03:05 BUN 70 mg/dL (8-23) H 05/08/22 03:05 Creatinine 2.3 mg/dL (0.5-0.9) H 05/08/22 03:05 GFR Calculation Not Reportable 05/08/22 03:05 Glucose 190 mg/dL (65-115) H 05/08/22 03:05 Estimat Average Glucose 280 05/08/22 03:05 Hemoglobin A1c 11.4 % (4.0-6.0) H 05/08/22 03:05 Calculated Osmolality 310 mOsm/kg (285-295) H 05/08/22 03:05 Calcium 9.2 mg/dL (8.5-10.5) 05/08/22 03:05 Magnesium 2.0 mg/dL (1.7-2.3) 05/08/22 03:05 Total Bilirubin 0.4 mg/dL (0.15-1.2) 05/08/22 03:05 AST 21 U/L (0-32) 05/08/22 03:05 ALT 18 U/L (0-33) 05/08/22 03:05 Alkaline Phosphatase 84 U/L (35-105) 05/08/22 03:05 Troponin T Baseline 52 ng/L (0-10) H 05/08/22 03:05 Troponin T 120 Minute 49.11 ng/L (0-10) H 05/08/22 05:25 Delta Troponin T -2.89 ABS# (0-10) L 05/08/22 05:25 NT-Pro-B Natriuret Pep 17602 pg/mL (0-450) H 05/08/22 03:05 Total Protein 6.5 g/dL (6.6-8.7) L 05/08/22 03:05 Albumin 3.2 g/dL (3.5-5.2) L 05/08/22 03:05 Globulin 3.3 g/dL (1.3-4.6) 05/08/22 03:05 TSH 0.06 uIU/mL (0.27-4.20) L 05/08/22 03:05 Free T4 0.81 ng/dL (0.82-1.77) L 05/08/22 05:25 Discharge Plan Discharge Patient Disposition: Admitted As Inpatient Admit Provider: Tavares Stevens Clinical Impression: Acute on chronic combined systolic (congestive) and diastolic (congestive) heart failure, Pleural effusion, Creatinine elevation Condition: Coding Level of Care Code ED Manufacturing Director for Chg Fwd Exam Comprehensive
--- NOTE | 2022-05-08 02:25 | XRR_ITS ---
PROCEDURE INFORMATION: Exam: XR Chest Exam date and time: 05/08/2022 2:58 AM Age: 86 years old Clinical indication: Shortness of breath; Patient HX: C/O SOB; Additional info: Edema TECHNIQUE: Imaging protocol: Radiologic exam of the chest. Views: 1 view. COMPARISON: No relevant prior studies available. FINDINGS: Lungs: Right lung base consolidation. Findings may be seen with pneumonia. Pleural spaces: Bilateral pleural effusions. Heart/Mediastinum: No cardiomegaly. Bones/joints: No acute fracture. XR/XR chest 1V portable [id number] IMPRESSION: Right lung base consolidation. Bilateral pleural effusions. Findings may be seen with pneumonia.
--- NOTE | 2022-05-08 02:26 | ECG_ITS ---
[facility] Test Date: 2022-05-08 Pat Name: Kim Mon Department: Room: Gender: Female Registered Health Nurse: : 1935 Requested By: Huy Marques Order Number: [id number] Teresa MD: Paloma Jaffe M.D. Measurements Intervals [place] Rate: 92 P: UT: QRS: -5 QRSD: 84 T: 118 QT: 358 QTc: 443 Interpretive Statements SINUS RHYTHM WITH FIRST DEGREE AV BLOCK POSSIBLE ANTERIOR MYOCARDIAL INFARCTION , PROBABLY OLD Compared to ECG 05/07/2020 13:56:34 Supraventricular rhythm now present Sinus rhythm no longer present First degree AV block no longer present Myocardial infarct finding still present Electronically Signed On 05-08-2022 13:43:24 CDT by Paloma Jaffe M.D. [id number] f
[2022-05-08 02:31] VITALS: BP 159/87; PULSE 88; RESP 18; TEMP 36.5; O2SAT 97; BMI 34.0
[2022-05-08 03:24] LABS: Basophils # 0.2 10^3/uL (0.0-0.1); Basophils % 1.7 %; Eosinophils # 0.5 10^3/uL (0.0-0.8); Eosinophils % 6.1 %; Hemoglobin 10.1 g/dL (11.5-15.3); Lymphocytes # 1.9 10^3/uL (0.8-4.8); Lymphocytes % 20.8 %; Mean Corpuscular HGB Conc 30.6 g/dL (30.0-36.0); Mean Corpuscular Hemoglobin 24.5 pg (28.0-34.0); Mean Corpuscular Volume 79.9 fl (81-99); Mean Platelet Volume 9.2 fL (7.4-10.4); Monocytes # 1.1 10^3/uL (0.2-0.9); Monocytes % 12.5 %; Neutrophils # 5.21 10^3/uL (1.8-7.7); Neutrophils % 58.7 %; Nucleated Red Blood Cells % 0 %; Platelet Count 366 10^3/cmm (130-400); Red Blood Count 4.13 10^6/uL (4.1-5.3); White Blood Count 8.9 10^3/uL (4.0-10.0)
[2022-05-08 03:38] LABS: Troponin(5th) Baseline 52 ng/L (0-10)
[2022-05-08 03:49] LABS: Alanine Aminotransferase 18 U/L (0-33); Albumin Level 3.2 g/dL (3.5-5.2); Alkaline Phosphatase 84 U/L (35-105); Anion Gap 18.8 (5-19); Aspartate Amino Transferase 21 U/L (0-32); Blood Urea Nitrogen 70 mg/dL (8-23); Calcium 9.2 mg/dL (8.5-10.5); Carbon Dioxide 22 mmol/L (22-29); Chloride 101 mmol/L (98-107); Globulin 3.3 g/dL (1.3-4.6); Glucose 190 mg/dL (65-115); NT Pro B Type Natriuretic Pept 17076 pg/mL (0-450); Osmolality Calculated 310 mOsm/kg (285-295); Potassium 4.8 mmol/L (3.5-5.1); Sodium 137 mmol/L (136-145); Thyroid Stimulating Hormone 0.06 uIU/mL (0.27-4.20); Total Bilirubin 0.4 mg/dL (0.15-1.2); Total Protein 6.5 g/dL (6.6-8.7)
--- NOTE | 2022-05-08 05:01 | USCV_ITS ---
Kim Mon Age: 86 Gender: F : 1935 Exam Date: 05/08/2022 05:39 Ordering Phys: Tavares Stevens MD Technologist: Savage Connor Exam Location: [facility] [place] Indication: sob BP: 132 / 75 HR: 47 Rhythm: Sinus Technical Quality: Adequate MEASUREMENTS (Male / Female) Normal Values 2D ECHO LV Diastolic Diameter PLAX 3.8 cm 4.2 - 5.9 / 3.9 - 5.3 cm LV Systolic Diameter PLAX 3.3 cm IVS Diastolic Thickness 1.1 cm 0.6 - 1.0 / 0.6 - 0.9 cm IVS Systolic Thickness 1.4 cm LVPW Diastolic Thickness 1.1 cm 0.6 - 1.0 / 0.6 - 0.9 cm LVPW Systolic Thickness 1.2 cm LVOT Diameter 2.1 cm LV Ejection Fraction 2D Teich 23.7 % LV Ejection Fraction MOD 2C 40.2 % LV Ejection Fraction 2C AL 40.9 % LA Diameter 4.1 cm Aorta at Sinotubular Diameter 2.3 cm DOPPLER AV Peak Velocity 146.0 cm/s LVOT Peak Velocity 75.0 cm/s AV Area Cont Eq vti 2.0 cm squared AV Area Cont Eq pk 1.7 cm squared MV Area PHT 5.0 cm squared Mitral E to A Ratio 4.7 MV E' Velocity 86.0 cm/s Mitral E to LV E' Lateral Ratio 16.7 TR Peak Velocity 289.7 cm/s TR Peak Gradient 33.6 mmHg TV Peak E Velocity 167.0 cm/s Right Atrial Pressure 3.0 mmHg Pulmonary Artery Systolic Pressu 36.6 mmHg PV Peak Velocity 63.0 cm/s RV Acceleration Time 0.1 s FINDINGS Left Ventricle Normal left ventricular cavity size. Normal left ventricular wall thickness. Mildly decreased left ventricular systolic function. Global left ventricular hypokinesis. Grade I/IV diastolic dysfunction (abnormal relaxation filling pattern), normal to mildly elevated filling pressures. Left ventricular ejection fraction is estimated at 40 %. Right Ventricle Normal right ventricular size and systolic function. Right Atrium Mildly increased right atrial size. Left Atrium Moderately increased left atrial size. Mitral Valve Structurally normal mitral valve. Mild mitral annular calcification. There is moderate mitral regurgitation. In some views it appears to be moderate to severe. No mitral stenosis. Aortic Valve Structurally normal trileaflet aortic valve. Mild aortic valve calcification. Aortic valve sclerosis without stenosis or regurgitation. Mild aortic valve regurgitation. Tricuspid Valve Structurally normal tricuspid valve. Ocnf-iv-[id number] tricuspid valve regurgitation. Pulmonic Valve Pulmonic valve not well visualized. Pericardium Normal pericardium without effusion. Aorta Normal ascending aorta dimension. IVC Inferior vena cava not visualized. CONCLUSIONS Normal left ventricular cavity size. Normal left ventricular wall thickness. Mildly decreased left ventricular systolic function. Global left ventricular hypokinesis. Grade I/IV diastolic dysfunction (abnormal relaxation filling pattern), normal to mildly elevated filling pressures. Left ventricular ejection fraction is estimated at 40 %. Mildly increased right atrial size. Moderately increased left atrial size. Structurally normal mitral valve. Mild mitral annular calcification. There is moderate mitral regurgitation. In some views it appears to be moderate to severe. No mitral stenosis. Structurally normal trileaflet aortic valve. Mild aortic valve calcification. Aortic valve sclerosis without stenosis or regurgitation. Mild aortic valve regurgitation. When compared to the previous echo done 05/05/2020, the left ventricular function is similar. The mitral regurgitation is not evaluated is quite as severe as previously. Otherwise, there is no change. Dr. Christ Loera MD (Electronically Signed) Final Date: 08 May 2022 13:37 S
--- NOTE | 2022-05-08 05:01 | PM.HP ---
Providers/Chief Complaint Primary Care Provider: Mini Little DO Chief Complaint: Legs,Stomach, swollen History of Present Illness Kim Mon is a 86 year old female with a past medical history of type 2 diabetes mellitus, history of hypertension, history of atrial fibrillation on Xarelto, history of ischemic cardiomyopathy, who presents to [facility] due to bilateral extremity edema. Patient tells me for the last 3 weeks she has developed increasingly bilateral extremity Edema, orthopnea, paroxysmal nocturnal dyspnea. She saw her primary care provider who increased her Lasix to 80 twice daily added metolazone however she continues to have bilateral lower extremity edema and shortness of breath. Denies any chest pain, denies any palpitations, she does tell me that roughly 2 years ago she was told she had ischemic cardiomyopathy, open heart surgery was recommended but she had evaluation by CT surgery who advised her that she is not a good candidate for surgery. Review of Systems Card: Denies: chest pain Resp: Reports: dyspnea Medications/Allergies Home Medications Medication Instructions Recorded Confirmed Last Taken Type atorvastatin 40 mg tablet 40 mg PO BEDTIME #30 tabs 08/23/19 05/15/20 05/02/20 21:00 Rx metoprolol tartrate 25 mg tablet 12.5 mg PO BID #30 tabs 08/23/19 05/15/20 05/03/20 20:00 Rx ferrous gluconate 324 mg (37.5 mg 324 mg PO BIDWM #60 tabs 05/08/20 05/15/20 Unknown Rx iron) tablet furosemide 40 mg tablet 80 mg PO BID@08,16 #60 tabs 05/08/20 05/15/20 Unknown Rx methimazole 5 mg tablet 5 mg PO DAILY #30 tabs 05/08/20 05/15/20 Unknown Rx metolazone 5 mg tablet 2.5 mg PO DAILY #30 tabs 05/08/20 05/15/20 Unknown Rx pantoprazole 40 mg tablet,delayed 40 mg PO DAILY #30 tabs 05/08/20 05/15/20 Unknown Rx release potassium chloride 10 mEq 20 meq PO BID #15 tabs 05/08/20 05/15/20 Unknown Rx tablet,extended release rivaroxaban 20 mg tablet (Xarelto) 20 mg PO DAILY #30 tabs 05/08/20 05/15/20 Unknown Rx Allergies Allergy/AdvReac Type Severity Reaction Status Date / Time shrimp Allergy Severe Unknown Verified 08/22/19 16:29 shellfish derived Allergy Unknown Unknown Verified 08/22/19 16:29 PFSH Acute PFSH: Medical History (HFpEF) heart failure with preserved ejection fraction A-fib Cerebellar artery occlusion or stenosis Cholelithiasis DM type 2 (diabetes mellitus, type 2) Hip pain HTN (hypertension) Thyroid goiter Tricuspid valve disorder Surgical History No pertinent past surgical history Family History Mother Cancer Father CAD (coronary artery disease) Sister Diabetes Social History Smoking and tobacco status: never smoked Second hand smoke exposure: Yes Alcohol intake: never Household members: significant other Vitals/I&O/Wt Last Vital Signs Temp 97.7 F 05/08/22 02:31 Pulse 88 05/08/22 02:31 Resp 18 05/08/22 02:31 BP 159/87 05/08/22 02:31 Pulse Ox 97 05/08/22 02:31 O2 Del Method 05/08/22 02:31 Weight last 48 hrs Weight 78.925 kg Physical Exam Const: COMMON NORMALS: no acute distress and patient oriented x3 HENMT: COMMON NORMALS: normocephalic HEAD & SCALP: normocephalic Neck/C-Spine: COMMON NORMALS: no JVD Resp: COMMON NORMALS: normal respiratory effort, No retractions, No use of accessory muscles and clear to auscultation bilaterally AUSCULTATION: clear to auscultation bilaterally Cardio: COMMON NORMALS: no JVD, regular rate, regular rhythm, S1 normal heart sound present and S2 normal heart sound present RATE: regular rate RHYTHM: regular rhythm HEART SOUNDS: S1 normal heart sound present and S2 normal heart sound present GI: COMMON NORMALS: Normal to inspection, nondistended, normoactive bowel sounds present, Soft to palpation, non-tender, No hepatosplenomegaly present, no masses and no bruits PALPATION: Yes Soft to palpation and Yes No hepatosplenomegaly present Extremity: NARRATIVE EXTREMITY EXAM: 2+ pitting edema bilateral extremity Neuro: COMMON NORMALS: patient oriented x3, CN's II-XII intact bilaterally, moves all extremities and no focal motor deficits Psych: COMMON NORMALS: mental status grossly normal Data : 05/08/22 03:05 05/08/22 03:05 A&P Assessment and plan (1) Acute on chronic combined systolic (congestive) and diastolic (congestive) heart failure: Status: Acute Plan Acute CHF exacerbation -Likely combination of systolic and diastolic -We will repeat cardiac echo -Fluid restrictions 1000 cc -Place Julian catheter -Bumex 1 mg every 12 hours might need to be upward titrated -Mag greater than 2, potassium greater than 4 -Creatinine 2.3, baseline creatinine unknown, monitor creatinine, monitor sodium, monitor urine output -Serial EKGs, serial troponins, telemetry monitoring -Type 2 diabetes mellitus, low-dose sliding scale A1c -Xarelto for DVT prophylaxis -Full code Attestations Medical Necessity Statement*: Patient requires hospitalization, inpatient, greater than 2 midnights, for CHF exacerbation, systolic Coding Level of Care Code Acute Traffic Maintenance Officer for Chg Fwd Diagnoses Acute on chronic combined systolic (congestive) and diastolic (congestive) heart failure I50.43
[2022-05-08 05:50] LABS: Troponin 5 2HR 49.11 ng/L (0-10)
[2022-05-08 05:57] LABS: Estmated Average Glucose 280; Hemoglobin A1C 11.4 % (4.0-6.0)
[2022-05-08 05:58] LABS: Free T4 Free Thyroxine 0.81 ng/dL (0.82-1.77)
[2022-05-08 06:06] LABS: Troponin 5 2HR Delta -2.89 ABS# (0-10)
[2022-05-08 06:27] VITALS: BP 151/77; PULSE 84; RESP 18; TEMP 36.5; O2SAT 97
[2022-05-08 07:32] LABS: Glucose Point of Care 205 mg/dL (70-110)
[2022-05-08] MEDS: bumetanide 0.25 mg/mL SDV 4 mL 1 MG IVP (07:41)
[2022-05-08 08:00] VITALS: BP 156/87; PULSE 91; RESP 18; O2SAT 97; O2SAT 98
[2022-05-08 08:01] LABS: Urine Appearance Clear (CLEAR); Urine Color Yellow (Yellow); pH Urine 5 (5-7)
[2022-05-08 08:02] LABS: Add Urine Microscopic? YES; Bilirubin Urine Neg (Negative); Blood Urine Neg (Negative); Glucose Urine UA Trace (Normal); Ketones Urine Negative (Negative); Leukocyte Esterase Urine Negative (Negative); Nitrate Urine Negative (Negative); Protein Urine 3+ (Negative); RBC Urine 0-4 /hpf (0-2); Specific Gravity, Urine 1.015 (1.005-1.030); Squamous Epithelial Cell Urine 0-4 /hpf (0-5); Urobilinogen Urine Norm (Negative); WBC Urine 0-4 /hpf (0-5)
[2022-05-08 08:03] LABS: Add Urine Culture? No; Bacteria Urine TRACE /hpf; Mucus Urine TRACE /hpf
[2022-05-08] MEDS: ferrous gluconate 324 mg Tablet PO ×2 (08:13→17:38)
[2022-05-08] MEDS: rivaroxaban 10 mg Tablet 20 MG PO (08:13)
[2022-05-08] MEDS: potassium chloride ER 10 mEq Tablet 20 MEQ PO ×2 (08:13→17:38)
[2022-05-08] MEDS: insulin lispro 100 unit/1 mL SUBCUT ×2 (08:14→12:08)
[2022-05-08] MEDS: metoprolol tartrate 25 mg Tablet 12.5 MG PO ×2 (08:14→17:36)
[2022-05-08] MEDS: pantoprazole DR 40 mg Tablet PO (08:14)
--- NOTE | 2022-05-08 08:45 | ECG_ITS ---
[facility] Test Date: 2022-05-08 Pat Name: Kim Mon Department: Room: ED Gender: Female Manager Unix: : 1935 Requested By: Huy Marques Order Number: [id number] Teresa MD: Paloma Jaffe M.D. Measurements Intervals [place] Rate: 85 P: 24 TN: 303 QRS: -11 QRSD: 84 T: 140 QT: 385 QTc: 459 Interpretive Statements SINUS RHYTHM WITH FIRST DEGREE AV BLOCK POSSIBLE ANTERIOR MYOCARDIAL INFARCTION , PROBABLY OLD [30 ms Q WAVE IN V3/V4, OR R < 0.2 mV IN V4] Compared to ECG 05/08/2022 03:00:54 First degree AV block now present Supraventricular rhythm no longer present Myocardial infarct finding still present Electronically Signed On 05-09-2022 8:44:09 CDT by Paloma Jaffe M.D. [id number]
[2022-05-08 08:46] VITALS: O2SAT 98
[2022-05-08 09:09] LABS: Troponin 5 6HR 46.69 ng/L (0-10)
[2022-05-08 09:13] LABS: Troponin 5 6HR Delta -5.31 ng/L (0-12)
[2022-05-08] MEDS: methIMAzole 5 MG Tablet PO (09:28)
[2022-05-08 11:58] LABS: Glucose Point of Care 184 mg/dL (70-110)
[2022-05-08 14:43] VITALS: BP 130/94; PULSE 79; RESP 18; O2SAT 98
[2022-05-08 16:00] VITALS: BP 125/77; PULSE 79; RESP 18; TEMP 36.8; O2SAT 98
[2022-05-08] MEDS: cefTRIAXone 1,000 MG in sodium chloride 0.9% (plus) 50 ML 100 MG IV (16:24)
[2022-05-08 16:57] LABS: Glucose Point of Care 126 mg/dL (70-110)
[2022-05-08] MEDS: azithromycin 500 MG in sodium chloride 0.9% 250 ML 250 MG IV (17:30)
[2022-05-08] MEDS: acetaminophen 325 mg Tablet 650 MG PO (17:43)
--- NOTE | 2022-05-08 19:23 | XRR_ITS ---
PROCEDURE INFORMATION: Exam: XR Chest Exam date and time: 05/08/2022 7:14 PM Age: 86 years old Clinical indication: Other: Unknown post code TECHNIQUE: Imaging protocol: Radiologic exam of the chest. Views: 1 view. COMPARISON: CR (CHEST, ) 05/08/2022 2:58 AM FINDINGS: Tubes, catheters and devices: Endotracheal tube within the proximal right mainstem bronchus. Lungs: Diffuse hazy ground-glass opacities are significantly increased. Pleural spaces: Bilateral pleural effusions are stable. Negative for pneumothorax. Heart/Mediastinum: Unremarkable. No cardiomegaly. Bones/joints: Unremarkable. XR/XR chest 1V portable [id number] IMPRESSION: 1. Right mainstem bronchus endotracheal intubation. Tube retraction of about 5 cm recommended. 2. Development of diffuse ground-glass airspace opacities likely representing ARDS.
[2022-05-08] MEDS: sodium bicarbonate 8.4% 1 mEq/mL 50mL Syr 50 MEQ IVP (19:27)
[2022-05-08] MEDS: atropine 0.1 mg/mL Syr 10 mL 1 MG IVP (19:27)
[2022-05-08 19:30] LABS: Glucose Point of Care 192 mg/dL (70-110)
--- NOTE | 2022-05-08 19:33 | PM.ACPR ---
Acute Procedures Intubation: Time out performed: Yes Laryngoscope: fiber optic video scope ET tube size: 8 ET tube uncuffed: Yes Tube secured depth (cm): 21 Tube secured location: lips Tube placement confirmation: visualized tube passing through cords, equal breath sounds bilaterally and no breath sounds over epigastrium Patient tolerated procedure: well Intubation complications: none Additional comments: Patient was intubated during the code,she was intubated on second attempt it was a difficult intubation, as She was profusely bleeding In the oral cavity, initially tube was slightly deep into the right mainstem bronchus, as seen on chest x-ray ,tube adjustment was later done, by pulling out the tube by additional 5 cm.
--- NOTE | 2022-05-08 20:43 | PC.NURSE ---
MTS Referral Called [facility] mortality referral line, spoke with Teri who stated she would look into the patient chart further and call back with donation status. All questions answered at this time.
--- NOTE | 2022-05-08 21:09 | PM.DDS ---
Discharge Providers DDS Date of Admission: 05/08/22 07:01 Date Summary Completed: 05/08/22 Attending Provider at Admission: Tavares Stevens MD Attending Provider at Discharge: Vince Encinas Primary Care Provider: DO NICA [facility] Diagnoses Hospital Diagnoses (1) Acute on chronic combined systolic (congestive) and diastolic (congestive) heart failure: Reason for Visit Reason for Visit Legs,Stomach, swollen Summary Summary Summary: Pleasant 86-year-old lady with history of ischemic cardiomyopathy and congestive heart failure, atrial fibrillation, severe stenosis bilateral posterior cerebral artery, DM2, HTN, thyroid goiter, cholelithiasis, moderate to severe mitral regurgitation, was admitted for assessment of management due to fluid overload, abdominal and lower extremity swelling, worsening dyspnea with exertion, severe orthopnea, despite recent adjustment in outpatient medications with oral Lasix, metolazone she estimated about 30 pound weight gain over about 1 month, with moderate to severe symptoms. Denies any chest pain, palpitations. Reported with ischemic cardiomyopathy open heart surgery was recommended 2 years ago, however on evaluation with CT surgery was advised was not a good candidate. Presentation with noted fluid overload. BNP elevation, bilateral pleural effusions, right lung base consolidation. Was maintained on fluid restriction, IV diuretics every 12 hours, repeat echocardiogram was obtained. She was continued on metoprolol, Xarelto, heart rate under control. TSH 0.06, free T4 0.81. Continued on methimazole. Empiric antibiotics for possible community-acquired pneumonia. Troponin series without rising delta, with mild elevation in upper 40s. EKG with first-degree block without acute ischemic changes. She was making urine, and in negative balance. Around 1851 found unresponsive, without pulse or respirations and CPR was initiated. After multiple rounds of CPR, epinephrine, regained ROSC. Was intubated, initiated on pressor, brought down to ICU, received atropine for bradycardia, shortly after still loss of spontaneous circulation, however, unable to regain pulse after good quality compressions, epinephrine and bicarbonate, resuscitative efforts discontinued after additional 30 minutes. Daughter was kept updated through the events and on the way to the hospital arriving shortly thereafter. Additional Data Confirmation of as documented by pronouncing clinician: no pulse, no respirations, no heart sounds and pupils fixed and dilated Was code activated?: Yes Advance directives?: No Discharge Plan Discharge Patient Disposition: Condition: Prescriptions: No Action atorvastatin 40 mg Tablet 40 mg PO BEDTIME Qty: 30 0RF metoprolol tartrate 25 mg Tablet 12.5 mg PO BID Qty: 30 0RF furosemide 40 mg Tablet 80 mg PO BID@08,16 Qty: 60 0RF metolazone 5 mg Tablet 2.5 mg PO DAILY Qty: 30 0RF potassium chloride 10 mEq Tablet Extended Release 20 meq PO BID Qty: 15 0RF methimazole 5 mg tablet 5 mg PO DAILY Qty: 30 0RF Xarelto 20 mg tablet 20 mg PO DAILY Qty: 30 0RF Rx Instructions: must administer with evening meal metformin 500 mg Tablet 500 mg PO DAILY bumetanide 2 mg Tablet 2 mg PO BID Referrals: Mini Little DO [Primary Care Provider] - Probable Cause of Probable cause of : Cardiopulmonary arrest DS Attestations Time Spent in /Discharge Care*: greater than 30 min Quality - AMI: AMI present?: No Quality - Stroke: CVA present?: No Symptom Onset Unknown: No Quality - VTE: VTE present?: No Deep Vein Thrombosis/Pulmonary Embolism Present on Admission: No Coding Level of Care Code Acute [employer] Supervisor for Abdulaziz Huston Diagnoses Acute on chronic combined systolic (congestive) and diastolic (congestive) heart failure I50.43
[2022-05-08 21:10] LABS: Glucose Point of Care 204 mg/dL (70-110)
--- NOTE | 2022-05-08 21:31 | PC.NURSE ---
Family members arrived to give last respects to Kim. Daughter Leighann told this nurse that she would like for Yuliet to make all of the decisions regarding her mom, so she declined signing body transfer release. When Leighann stepped outside to smoke , Yuliet tells me that Leighann will insist on making all of those decisions. I asked that Yuliet not leave until my paperwork was signed by either herself or Leighann. I stepped into another pt's room to care for them. When I returned, all of the family had left the room. I attemped to call both Leighann and Yuliet. Both numbers went to voicemail. Voicemails have been left, requesting call back to the ICU. While Leighann was gone, Yuliet had me give her the ring off of her mother's left ring finger, which contained a single gem stone and silver/white gold setting.
--- NOTE | 2022-05-08 21:39 | PM.CCNAC ---
Critical Care Event Note The high probability of a clinically significant, sudden or life threatening deterioration of the patient's cardiovascular system(s) required my full and direct attention, intervention and personal management. The critical care time is as shown. This time is in addition to time spent performing any reported procedures but includes the following: [x] Data and vital sign review and interpretation [x] Patient assessment, examination and intervention [x] Documentation [x] Medication orders and management Critical Care Time Code activated: Yes Critical Care Time (min): 35 Additional information about critical care time: At 1850, A CODE BLUE was called. Patient was noted to be in PEA rhythm. Patient received high-quality compression from [id number]. Patient eventually acheived ROSC. Dr. Luna placed an ET tube for airway protection. In total, patient used 2 amps of bicarb, 4 boluses of epi, 2 g of calcium chloride prior to achieving ROSC. Post ROSC, patient was transported to ICU 12. Coding Level of Care Code Acute Community Theater Actor for Abdulaziz Huston
--- NOTE | 2022-05-08 21:58 | PC.NURSE ---
Leighann returned to pt's room after being in the parking lot. She has signed body transfer release. She has been made aware that Yuliet has their mother's ring.
--- NOTE | 2022-05-08 22:00 | PC.NURSE ---
Pt arrived from med surg at 1920. Pt intubated, not breathing over ventilator. A large amount of bright red blood present in tubing of ventilator. Pt had spontaneous cardiac rhythm at this time. Pt had no blink, cough, or gag reflex. Pt's cardiac rhythm quickly deteriorated, and code blue called. Dr. Luna present at bedside. Dr. Wang and Dr Marques at bedside after code called. ACLS protocol followed. See cardiopulmonary arrest flow sheet.
--- NOTE | 2022-05-08 22:32 | PC.NURSE ---
Upper denture, lower partial, pink t-shirt, black tank top sent with home.
--- NOTE | 2022-05-08 22:45 | PC.NURSE ---
[facility] Update Rashel with [employer] called to report that the patient is a candidate for donation. [employer] manufacturer's service representative Rashel also requested the body be held and reported that he would speak with the family regarding donation.
--- NOTE | 2022-05-08 23:20 | PC.NURSE ---
Pt's body, dentures, and clothing sent to [facility] [place] after IO, ricks, ETT, and IVL removed and post-mortem care performed.
== END 2022-05-08 19:57 | disposition expired | DRG 291 ==
LOC: ER 04:18 → ER IP 07:53 → MEDSURG 14:22 → ICU 19:15
PROVIDERS: Admitting Provider Family Medicine; Emergency Provider Emergency Medicine; PCP Family Medicine; Visit Provider Internal Medicine
DX: I11.0 Hypertensive heart disease with heart failure (principal); I46.9 Cardiac arrest, cause unspecified; I50.43 Acute on chronic combined systolic (congestive) and diastolic (congestive) heart failure; I48.91 Unspecified atrial fibrillation; I25.5 Ischemic cardiomyopathy; E78.5 Hyperlipidemia, unspecified; I34.0 Nonrheumatic mitral (valve) insufficiency; E11.9 Type 2 diabetes mellitus without complications; Z79.02 Long term (current) use of antithrombotics/antiplatelets; I44.0 Atrioventricular block, first degree; I66.23 Occlusion and stenosis of bilateral posterior cerebral arteries
CPT/HCPCS: 36415; 36416; 51702; 71045; 80053; 81001; 82962; 83036; 83735; 83880; 84439; 84443; 84484; 85025; 93005; 93306; 94664; 96365; 96367; 96372; 99285; J0171; J0456; J0461; J0696; J1815; J3490; J7050